=== PATIENT | male | born 1950 | race Caucasian/White ===

== ENCOUNTER 2019-03-16 11:12 | Outpatient (RCR) | payer SELFPAY | END 2019-03-24 00:01 | LOC: LAB 11:12 | PROVIDERS: Family Provider Family Medicine; Visit Provider Internal Medicine Infectious Disease | DX: G96.0 Cerebrospinal fluid leak (principal) | CPT/HCPCS: 80053 ×2; 80202 ×2; 85025 ×2 ==

== ENCOUNTER → 2021-01-18 11:24 | Outpatient (BNVA) | payer MEDICARE, SELFPAY | PROVIDERS: Family Provider Family Medicine; PCP Nurse Practitioner Family; Visit Provider Family Medicine | DX: Z20.822 Contact with and (suspected) exposure to COVID-19 (principal); J06.9 Acute upper respiratory infection, unspecified | CPT/HCPCS: 87635 ==

== ENCOUNTER 2024-12-17 21:02 | Emergency (ER) | payer OTHER, MEDICAID, SELFPAY ==
--- OUTSIDE RECORDS SUMMARY | 2024-12-11 04:30 | XMS_ITS ---
Author Organization [facility] Address [address] [place] [address] Care Team Providers [facility]ive Ranger Name Role Phone Maranda Ventura Primary Care Provider Jo Noble Unavailable [phone] Results Component Value Reference Range Flag Notes Full Confirmation - Specimen Type Urine Reviewed date:12/17/2024 12:40:27 PM Interpretation: Performing Lab: Notes/Report: 6-ÓSCAR Negative 20 ng/mL ng/mL 7-Aminoclonazepam Negative 50 ng/mL ng/mL a-Hydroxyalprazolam Negative 50 ng/mL ng/mL Alprazolam Negative 50 ng/mL ng/mL Amphetamine Negative 50 ng/mL ng/mL Benzoylecgonine Negative 50 ng/mL ng/mL Buprenorphine Negative 25 ng/mL ng/mL Carisoprodol Negative 50 ng/mL ng/mL Clonazepam Negative 50 ng/mL ng/mL Codeine Negative 50 ng/mL ng/mL Cyclobenzaprine Negative 50 ng/mL ng/mL Diazepam Negative 50 ng/mL ng/mL EDDP Negative 50 ng/mL ng/mL Fentanyl Negative 3 ng/mL ng/mL Gabapentin Negative 500 ng/mL ng/mL Hydrocodone Negative 50 ng/mL ng/mL Hydromorphone >500 50 ng/mL ng/mL H Lorazepam Negative 50 ng/mL ng/mL MDMA Negative 50 ng/mL ng/mL Meprobamate Negative 50 ng/mL ng/mL Methadone Negative 50 ng/mL ng/mL Methamphetamine Negative 200 ng/mL ng/mL Morphine Negative 50 ng/mL ng/mL Naloxone Negative 50 ng/mL ng/mL Naltrexone Negative 50 ng/mL ng/mL Norbuprenorphine Negative 25 ng/mL ng/mL Nordiazepam Negative 50 ng/mL ng/mL Norfentanyl Negative 10 ng/mL ng/mL Norpropoxyphene Negative 50 ng/mL ng/mL Oxazepam Negative 50 ng/mL ng/mL Oxycodone Negative 50 ng/mL ng/mL Oxymorphone Negative 50 ng/mL ng/mL Pregabalin Negative 200 ng/mL ng/mL Propoxyphene Negative 50 ng/mL ng/mL Tapentadol Negative 50 ng/mL ng/mL Temazepam Negative 50 ng/mL ng/mL Tramadol Negative 50 ng/mL ng/mL THC Negative 50 ng/mL ng/mL Amitriptyline Negative 50 ng/mL ng/mL Carboxyzolpidem Negative 100 ng/mL ng/mL Desmethyldoxepin Negative 50 ng/mL ng/mL Doxepin Negative 50 ng/mL ng/mL Imipramine Negative 50 ng/mL ng/mL Methylphenidate Negative 50 ng/mL ng/mL Nortriptyline Negative 50 ng/mL ng/mL o-Desmethyltramadol Negative 50 ng/mL ng/mL Ritalinic Acid Negative 50 ng/mL ng/mL Desalkylflurazepam Negative 50 ng/mL ng/mL Flunitrazepam Negative 50 ng/mL ng/mL Flurazepam Negative 50 ng/mL ng/mL Ketamine Negative 50 ng/mL ng/mL Meperidine Negative 50 ng/mL ng/mL Mitragynine Negative 50 ng/mL ng/mL Norhydrocodone Negative 50 ng/mL ng/mL Norketamine Negative 50 ng/mL ng/mL Normeperidine Negative 50 ng/mL ng/mL Noroxycodone Negative 50 ng/mL ng/mL PCP Negative 25 ng/mL ng/mL Phentermine Negative 50 ng/mL ng/mL Zaleplon Negative 20 ng/mL ng/mL Trazodone Negative 50 ng/mL ng/mL Presumptive Drug Test - Spec imen Type Urine Reviewed date:12/17/2024 12:40:27 PM Interpretation: Performing Lab: Notes/Report: Opiates Screen Positive 150 ng/mL ng/ml H Benzodiazepines Screen Negative 150 ng/mL ng/ml Amphetamines Screen Negative 600 ng/mL ng/ml Cocaine Screen Negative 150 ng/mL ng/ml Methadone Screen Negative 150 ng/mL ng/ml 6-ÓSCAR Screen Negative 60 ng/mL ng/ml Methamphetamine Screen Negative 600 ng/mL ng/ml Fentanyl Screen Negative 9 ng/mL ng/ml Tricyclic Antidepressants Screen Negative 150 ng/mL ng/m l Buprenorphine Screen Negative 75 ng/mL ng/ml Cannabis Screen Negative 150 ng/mL ng/ml REASON FOR VISIT UDS Medications Medication SIG (Take, Route, Frequency, Duration) Notes Start Date End Date Status HYDROmorphone HCl 4 MG Tablet Take 1 tablet as needed for pain Orally four times a day; Duration: 28 days 11/13/2024 Active tiZANidine HCl 4 MG Tablet 1 tablet Orally three times a day; Duration: 28 days As needed FOR MUSCLE SPASMS G894,Unavailabl e 11/12/2024 Active Encounters Encounter Location Date Provider Diagnosis [facility] [place] [address] [facility] [address] 12/11/2024 Jo Noble correction (current) use of opiate analgesic Z79.891 and correction use of drug Z79.899 Assessments Encounter Date Diagnosis (ICD Code) Assessment Notes Treatment Notes Treatment Clinical Notes Section Notes 12/11/2024 correction (current) use of opiate analgesic (ICD-10 - Z79.891) 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, [place], [address], History and Physical Notes * HPI (History of Present Illness) Category Sub-Category Detail Notes Category Not es HPI Presumptive UDS ordered to ensure the safety and efficacy of the patient's treatment plan, if the presumptive is inconsistent the test will reflex to a confirmation. This confirmation will provide precise identification and quantification of specific drugs and their metabolites, enabling accurate assessment of the patient's compliance. Detecting possible diversion is crucial for preventing misuse, adjusting the treatment regimen as needed, and ensuring optimal patient outcomes. The confirmatory test will guide appropriate clinical interventions and support the responsible management of controlled medications.See attached results with included risk stratification and medical nessessity statement. Progress Notes * Robby WILLS EDOB:[birth year] (73 yo M)Acc No.[id number]:12/11/2024 Patient: Robby Bennett Provider: Monika Noble NP :1950 A ge:73 Y S ex:Male Date:12/11/2024 Address:[address] [place] [address] [id number] Pcp:Maranda Ventura Subjective: * Chief Complaints: * U DS * HPI: H PI: Presumptive UDS ordered to ensure the safety and efficacy of the patient's treatment plan, if the presumptive is inconsistent the test will reflex to a confirmation. This confirmation will provide precise identification and quantification of specific drugs and their metabolites, enabling accurate assessment of the patient's compliance. Detecting possible diversion is crucial for preventing misuse, adjusting the treatment regimen as needed, and ensuring optimal patient outcomes. The confirmatory test will guide appropriate clinical interventions and support the responsible management of controlled medications.See attached results with included risk stratification and medical nessessity statement. * Medications: T akingtiZANidine HCl 4 MG Tablet 1 tablet Orally three times a day As needed FOR MUSCLE SPASMS, Notes to Pharmacist: G894,UnavailableHYDROmorphone HCl 4 MG Tablet Take 1 tablet as needed for pain Orally four times a day Taking tiZANidine HCl 4 MG Tablet 1 tablet Orally three times a day As needed FOR MUSCLE SPASMS, Notes to Pharmacist: G894,UnavailableTaking HYDROmorphone HCl 4 MG Tablet Take 1 tablet as needed for pain Orally four times a day Assessment: * Assessment: 1. L malcom term (current) use of opiate analgesic - Z79.891 (Primary) 2 . L malcom term use of drug - Z79.899 Plan: * Treatment: Value Reference Range 6 -ÓSCAR Negative 20 ng/mL - ng/mL * 7 -Aminoclonazepam Negative 50 ng/mL - ng/mL * a -Hydroxyalprazolam Negative 50 ng/mL - ng/mL * A lprazolam Negative 50 ng/mL - ng/mL * A mitriptyline Negative 50 ng/mL - ng/mL * A mphetamine Negative 50 ng/mL - ng/mL * B enzoylecgonine Negative 50 ng/mL - ng/mL * B uprenorphine Negative 25 ng/mL - ng/mL * C arboxyzolpidem Negative 100 ng/mL - ng/mL * C arisoprodol Negative 50 ng/mL - ng/mL * C lonazepam Negative 50 ng/mL - ng/mL * C odeine Negative 50 ng/mL - ng/mL * C yclobenzaprine Negative 50 ng/mL - ng/mL * D esalkylflurazepam Negative 50 ng/mL - ng/mL * D esmethyldoxepin Negative 50 ng/mL - ng/mL * D iazepam Negative 50 ng/mL - ng/mL * D oxepin Negative 50 ng/mL - ng/mL * E DDP Negative 50 ng/mL - ng/mL * F entanyl Negative 3 ng/mL - ng/mL * F lunitrazepam Negative 50 ng/mL - ng/mL * F lurazepam Negative 50 ng/mL - ng/mL * G abapentin Negative 500 ng/mL - ng/mL * H ydrocodone Negative 50 ng/mL - ng/mL * H ydromorphone >500 H 50 ng/mL - ng/mL * I mipramine Negative 50 ng/mL - ng/mL * K etamine Negative 50 ng/mL - ng/mL * L orazepam Negative 50 ng/mL - ng/mL * M DMA Negative 50 ng/mL - ng/mL * M eperidine Negative 50 ng/mL - ng/mL * M eprobamate Negative 50 ng/mL - ng/mL * M ethadone Negative 50 ng/mL - ng/mL * M ethamphetamine Negative 200 ng/mL - ng/mL * M ethylphenidate Negative 50 ng/mL - ng/mL * M itragynine Negative 50 ng/mL - ng/mL * M orphine Negative 50 ng/mL - ng/mL * N aloxone Negative 50 ng/mL - ng/mL * N altrexone Negative 50 ng/mL - ng/mL * N orbuprenorphine Negative 25 ng/mL - ng/mL * N ordiazepam Negative 50 ng/mL - ng/mL * N orfentanyl Negative 10 ng/mL - ng/mL * N orhydrocodone Negative 50 ng/mL - ng/mL * N orketamine Negative 50 ng/mL - ng/mL * N ormeperidine Negative 50 ng/mL - ng/mL * N oroxycodone Negative 50 ng/mL - ng/mL * N orpropoxyphene Negative 50 ng/mL - ng/mL * N ortriptyline Negative 50 ng/mL - ng/mL * o -Desmethyltramadol Negative 50 ng/mL - ng/mL * O xazepam Negative 50 ng/mL - ng/mL * O xycodone Negative 50 ng/mL - ng/mL * O xymorphone Negative 50 ng/mL - ng/mL * P CP Negative 25 ng/mL - ng/mL * P hentermine Negative 50 ng/mL - ng/mL * P regabalin Negative 200 ng/mL - ng/mL * P ropoxyphene Negative 50 ng/mL - ng/mL * R italinic Acid Negative 50 ng/mL - ng/mL * T apentadol Negative 50 ng/mL - ng/mL * T emazepam Negative 50 ng/mL - ng/mL * T HC Negative 50 ng/mL - ng/mL * T ramadol Negative 50 ng/mL - ng/mL * T razodone Negative 50 ng/mL - ng/mL * Z aleplon Negative 20 ng/mL - ng/mL * This lab was reviewed by Meg Noble on 12/17/2024 at 12:40 PM CDT ?LAB: Presumptive Drug Test - Specimen Type Urine (Collection Date & Time - 12/11/2024 10:30 AM)* Value Reference Range A mphetamines Screen Negative 600 ng/mL - ng/ml * B enzodiazepines Screen Negative 150 ng/mL - ng/ml * C ocaine Screen Negative 150 ng/mL - ng/ml * M ethamphetamine Screen Negative 600 ng/mL - ng/ml * M ethadone Screen Negative 150 ng/mL - ng/ml * O piates Screen Positive H 150 ng/mL - ng/ml * T ricyclic Antidepressants Screen Negative 150 ng/m L - ng/ml * C annabis Screen Negative 150 ng/mL - ng/ml * 6 -ÓSCAR Screen Negative 60 ng/mL - ng/ml * F entanyl Screen Negative 9 ng/mL - ng/ml * B uprenorphine Screen Negative 75 ng/mL - ng/ml * This lab was reviewed by Meg Noble on 12/17/2024 at 12:40 PM CDT * Procedure Codes: 8 0307 DRUG TEST PRSMV CHEM [id number] Drug test def 1-7 classes Billing Information: * Procedure Codes: 34014 DRUG TEST PRSMV CHEM ANLYZR. [id number] Drug test def 1-7 classes. * Sign off status: Completed true * Provider: Monika Noble NP Date: 0 12/11/2024 Generated for Jaqueline meneses/Paul/Curtis on: 0 12/17/2024 09:08 PM CDT
--- OUTSIDE RECORDS SUMMARY | 2024-12-11 05:30 | XMS_ITS ---
Author Organization [facility] Address [address] [place] [address] Care Team Providers Care Back Tender Paper Machine Name Role Phone Maranda Ventura Primary Care Provider Jo Noble Unavailable [phone] Allergies Allergen (clinical drug ingredient) Drug/Non Drug Allergy documented on EMR Reaction Allergy Type Onset Date Status morphine Morphine Unknown Drug Allergy Active oxycodone Oxycodone Unknown Drug Allergy Active REASON FOR VISIT PAIN HAWK., Patient presents this visit with complaint of neck and low back pain Medications Medication SIG (Take, Route, Frequency, Duration) Notes Start Date End Date Status HYDROmorphone HCl 4 MG Tablet Take 1 tablet as needed for pain Orally four times a day; Duration: 28 days 12/10/2024 Active tiZANidine HCl 4 MG Tablet 1 tablet Orally three times a day; Duration: 28 days As needed FOR MUSCLE SPASMS G894,Unavailabl e 12/10/2024 Active Vital Signs Blood pressure systolic 121 mm Hg 12/12/19 25 Blood pressure diastolic 93 mm Hg 025 Heart Rate 64 /min 12/11/2024 Respiratory Rate 20 /min 12/11/2024 Height 64 in 12/11/2024 Weight 160 lbs 12/11/2024 BMI 27.46 kg/m2 12/11/2024 Oximetry 99 % 12/11/2024 Height-cm 162.56 cm 12/11/2024 Weight-kg 72.58 kg 12/11/2024 Encounters Encounter Location Date Provider Diagnosis [facility] [address] [place] [place] [address] 12/11/2024 Jo Noble Cervical spondylosis M47.812 ; Lumbar spondylosis M47.816 ; History of back surgery Z98.890 ; Bulging of cervical intervertebral disc M50.30 ; Neural foraminal stenosis of cervical spine M48.02 ; Neural foraminal stenosis of lumbar spine M48.061 ; Chronic pain syndrome G89.4 and detention (current) use of opiate analgesic Z79.891 Assessments Encounter Date Diagnosis (ICD Code) Assessment Notes Treatment Notes Treatment Clinical Notes Section Notes 12/11/2024 Cervical spondylosis (ICD-10 - M47.812) CT C-SPINE COMPLETED JULY 2024. REVIEWED PREVIOUSLY. WILL GET PATIENT SET UP WITH NEUROSURGERY REFERRAL. NOTE TO STAFF TO CHECK ON REFERRAL 12/11/2024 Lumbar spondylosis (ICD-10 - M47.816) CT L-SPINE COMPLETED JULY 2024. REVIEWED PREVIOUSLY. WILL GET PATIENT SET UP WITH NEUROSURGERY. 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 Narcotic prescription signed per doctor. Patient denies any side effects, states regimen is helping. Discussed the consumer loan underwriter risk (ie. Addiction, oversedation, respiratory depression, and even dealth by overdose) The patient has pathology and justification for chronic use of narcotics.Discussed the consumer loan underwriter risk of being on opiate therapy, patient is aware and accepts the risk. The patient is not to drive or operate heavy equipment until knows how the medication will make them feel. Also discussed with the patient the new CDC guidelines regarding benzodiazepines and opiates. The fact that the CDC does not recommend taking both of these medications on an on-going basis. If the medication is prescribed b another physician we strongly discourage this practice. Should the patient continue to take benzodiazepines and opiates together despite the warning it is at their own risk.During the patient's visit today, we discussed their chronic pain, including the onset, duration, aggravating and relieving factors, nature of the pain, and their pain scale. We attempted to identify how the pain affected the patient's daily activities, mobility, mood, sleep, and relationships. We discussed both the long and short-term goals for pain management.We discussed the current medications including the dose, effectiveness, and potential side effects. Non-opioid therapies were considered, including NSAIDs and other adjuvant medications.We discussed the importance of exercise and recommended tailored exercises for the patient. We discussed physical therapy and potential referral to a physical therapist, if appropriate.We discussed the risks/benefits of alternative treatments such as acupuncture, rn intensive care unit, massage, and biofeedback.We discussed behavioral health and coping strategies. If applicable, we performed a PHQ-9 and CARMEN-7 with the patient. If the patient scored as having anxiety or depression, they were given education on the diagnosis. We discussed the importance of addressing any mental health concerns as mental health disorders are a common comorbidity of chronic pain. We discussed techniques to reduce stress and promote relaxation. If applicable, the patient was offered a referral to behavioral health.We discussed lifestyle modifications, including getting appropriate sleep, eating a healthy diet, and striving to control their weight. We discussed avoiding activities that exacerbate their pain.We discussed that we would reassess their pain scale and adjust their care plan as needed during future visits.Discussed all the risk, side effects, and drug interactions for consumer loan underwriter use of narcotics. The patient understands and is aware regarding all the risk involved. Also discussed overdose prevention plan including Narcan The patient is engaged in a longitudinal care relationship for the ongoing management of complex chronic conditions, including Chronic Pain Syndrome and long-term opioid analgesic use, along with other chronic pain conditions outlined in the assessment. The treatment plan involves continuous monitoring that includes random urine drug screens, routine imaging, coordination of care, and a multidisciplinary approach, which has been discussed with the patient and will be followed accordingly. The patient is engaged in a longitudinal care relationship for the ongoing management of complex chronic conditions, including Chronic Pain Syndrome and long-term opioid analgesic use, along with other chronic pain conditions outlined in the assessment. The treatment plan involves continuous monitoring that includes random urine drug screens, routine imaging, coordination of care, and a multidisciplinary approach, which has been discussed with the patient and will be followed accordingly. Plan Of Treatment Medication Medication Name Sig Start Date Stop Date Notes HYDROmorphone HCl 4 MG Tablet Take 1 tablet as needed for pain Orally four times a day; Duration: 28 days 12/10/2024 tiZANidine HCl 4 MG Tablet 1 tablet Oral ly three times a day; Duration: 28 days 12/10/2024 G894,Unavailable Treatment Notes Assessment Notes Cervical spondylosis CT C-SPINE COMPLETE D JULY 2024. REVIEWED PREVIOUSLY. WILL GET PATIENT SET UP WITH NEUROSURGERY REFERRAL. NOTE TO STAFF TO CHECK ON REFERRAL Lumbar spondylosis CT L-SPINE COMPLETED JULY 2024. REVIEWED PREVIOUSLY. WILL GET PATIENT SET UP WITH NEUROSURGERY. NOTE TO STAFF TO CHECK ON REFERRAL Other Will continue all me dication as previously prescribed, as patient reports effective. Narcotic prescription signed per doctor. Patient denies any side effects, states regimen is helping. Discussed the senior care risk (ie. Addiction, oversedation, respiratory depression, and even dealth by overdose) The patient has pathology and justification for chronic use of narcotics.Discussed the consumer loan underwriter risk of being on opiate therapy, patient is aware and accepts the risk. The patient is not to drive or operate heavy equipment until knows how the medication will make them feel. Also discussed with the patient the new CDC guidelines regarding benzodiazepines and opiates. The fact that the CDC does not recommend taking both of these medications on an on-going basis. If the medication is prescribed b another physician we strongly discourage this practice. Should the patient continue to take benzodiazepines and opiates together despite the warning it is at their own risk.During the patient's visit today, we discussed their chronic pain, including the onset, duration, aggravating and relieving factors, nature of the pain, and their pain scale. We attempted to identify how the pain affected the patient's daily activities, mobility, mood, sleep, and relationships. We discussed both the long and short-term goals for pain management.We discussed the current medications including the dose, effectiveness, and potential side effects. Non-opioid therapies were considered, including NSAIDs and other adjuvant medications.We discussed the importance of exercise and recommended tailored exercises for the patient. We discussed physical therapy and potential referral to a physical therapist, if appropriate.We discussed the risks/benefits of alternative treatments such as acupuncture, rn intensive care unit, massage, and biofeedback.We discussed behavioral health and coping strategies. If applicable, we performed a PHQ-9 and CARMEN-7 with the patient. If the patient scored as having anxiety or depression, they were given education on the diagnosis. We discussed the importance of addressing any mental health concerns as mental health disorders are a common comorbidity of chronic pain. We discussed techniques to reduce stress and promote relaxation. If applicable, the patient was offered a referral to behavioral health.We discussed lifestyle modifications, including getting appropriate sleep, eating a healthy diet, and striving to control their weight. We discussed avoiding activities that exacerbate their pain.We discussed that we would reassess their pain scale and adjust their care plan as needed during future visits.Discussed all the risk, side effects, and drug interactions for senior care use of narcotics. The patient understands and is aware regarding all the risk involved. Also discussed overdose prevention plan including Narcan The patient is engaged in a longitudinal care relationship for the ongoing management of complex chronic conditions, including Chronic Pain Syndrome and long-term opioid analgesic use, along with other chronic pain conditions outlined in the assessment. The treatment plan involves continuous monitoring that includes random urine drug screens, routine imaging, coordination of care, and a multidisciplinary approach, which has been discussed with the patient and will be followed accordingly. The patient is engaged in a longitudinal care relationship for the ongoing management of complex chronic conditions, including Chronic Pain Syndrome and long-term opioid analgesic use, along with other chronic pain conditions outlined in the assessment. The treatment plan involves continuous monitoring that includes random urine drug screens, routine imaging, coordination of care, and a multidisciplinary approach, which has been discussed with the patient and will be followed accordingly. Next Appt Details Follow Up: 4 Weeks, Reason: FU Provider Name:Jo Noble, Vipul 10:00:00 AM, [address] [place] [address] [place], [place], [id number], History and Physical Notes * HPI (History of Present Illness) Category Sub-Category Detail Notes Category Not es History of Present Illness Was the patients last drug screen reveiwed by staff? LAST UDS 09/18/24; REVIEWED AND COMPARED TO MED LIST. I/C. NEG FOR PAIN MEDS. AT LAST VISIT EDUCATED PATIENT TO TAKE PAIN MEDS PRESCRIBED AND IF NEG UDS IN THE FUTURE, WILL RESULT IN DECREASE IN PAIN MEDS. UDS TODAY. PATIENT REPORTS HE HAS BEEN SICK AT HIS STOMACH FOR THE LAST 2 DAYS. THIS IS SECOND TIME PATIENT HAS REPORTED THIS. EDUCATED PATIENT TO FOLLOW-UP WITH PCP FOR FURTHER EVALUATION. History of Present Illness Where is your pain located? NECK AND LOW BACK. How would you describe your pain? Sharp constant How do you rate your pain? 9/10 How long does your pain medication keep your pain under control? 15-30 minutes What is the percentage of pain relief you experience from your current medication regimen? 45% Is your current pain medication regimen helping to improve your total quality of life? Yes Do you have any history of drug of alcohol abuse? No Do you experience any sedative effects or side effects from your pain medication? No If yes, what are your symptoms? n/a Do you currently take any anti-anxiety medication? No If yes, do you understand the risk associated with taking pain medication along wiith anti-anxiety medication? n/a Do you reveive any pain medications from any other physicians? No Do you have a current script for Narcan? Yes NUMBNESS AND TINGLING; DENIES. LOCALIZED OR RADIATING; RADIATING. IMPROVING FACTORS; PAIN MEDS. WORSENING FACTORS; DENIES. INJECTIONS: DENIES; REPORTS NO IMPROVEMENT IN PAIN WITH PREVIOUS INJECTION. PT; PATIENT REPORTS DOING HOME PT/EXERICSE AND STRETCHING TOLERATED ON THEIR OWN. LABS; CMP FROM OCT 2024, REVIEWED LIVER AND RENAL ENZYMES, UNREMARKABLE. SURGICAL HISTORY: Low back x 1 IN 2019, [facility] DR. JESSICA GILBERT. IMAGING; XRAY CSPINE AND XRAY LSPINE COMPLETED JAN 2024. REVIEWED PREVIOUSLY CT CSPINE AND CT LSPINE COMPLETED JULY 2024. REVIEWED PREVIOUSLY. WILL GET PATIENT SET UP WITH NEUROSURGERY REFERRAL. PATIENT WANTING TO GO TO [place], DR. JESSICA GILBERT. VERBAL WARNING; 10/16/24: LAST UDS 09/18/24; REVIEWED AND COMPARED TO MED LIST. I/C. NEG FOR PAIN MEDS. EDUCATED PATIENT TO TAKE PAIN MEDS PRESCRIBED AND IF NEG UDS IN THE FUTURE, WILL RESULT IN DECREASE IN PAIN MEDS. UDS NEXT VISIT. Examination Category Sub-Category Detail Notes Category Not es Cervical Spine Inspection: normal C-spine a nd cervical curvature, without swelling and erythema Palpation: MODERATE TENDERNESS. RADIATES DOWN BUE. NO PALPABLE MASSES. Range of motion: LIMITED ROM. Back Inspection: WNL Palpation: Moderate tenderness that radiates to right hip, without palpable masses sacroiliac joint tenderness Range of motion: decreased full range of motion, secondary to pain Gait: normal, without gait disturbance, or use of ambulatory aids Physical Exam SPC General: no acute distress Eyes: sclera white Lung: regular breathing ra te and effort Neurologic: alert oriented Mental Status calm, pleasant Progress Notes * Robby WILLS EDOB:[birth year] (73 yo M)Acc No.[id number]:12/11/2024 Patient: Robby Bennett Provider: Monika Noble NP :1950 A ge:73 Y S ex:Male Date:12/11/2024 Address:[address] [place] [address] Pcp:Maranda Ventura Subjective: * Chief Complaints: * P AIN HAWK.Patient presents this visit with complaint of neck and low back pain * HPI: H istory of Present Illness: Was the patients last drug screen reveiwed by staff? LAST UDS 09/18/24; REVIEWED AND COMPARED TO MED LIST. I/C. NEG FOR PAIN MEDS. AT LAST VISIT EDUCATED PATIENT TO TAKE PAIN MEDS PRESCRIBED AND IF NEG UDS IN THE FUTURE, WILL RESULT IN DECREASE IN PAIN MEDS. UDS TODAY. PATIENT REPORTS HE HAS BEEN SICK AT HIS STOMACH FOR THE LAST 2 DAYS. THIS IS SECOND TIME PATIENT HAS REPORTED THIS. EDUCATED PATIENT TO FOLLOW-UP WITH PCP FOR FURTHER EVALUATION. History of Present Illness Where is your pain located? NECK AND LOW BACK. How would you describe your pain? Sharp constant How do you rate your pain? 9/10 How long does your pain medication keep your pain under control? 15-30 minutes What is the percentage of pain relief you experience from your current medication regimen? 45% Is your current pain medication regimen helping to improve your total quality of life? Yes Do you have any history of drug of alcohol abuse? No Do you experience any sedative effects or side effects from your pain medication? No If yes, what are your symptoms? n/a Do you currently take any anti-anxiety medication? No If yes, do you understand the risk associated with taking pain medication along wiith anti-anxiety medication? n/a Do you reveive any pain medications from any other physicians? No Do you have a current script for Narcan? Yes NUMBNESS AND TINGLING; DENIES. LOCALIZED OR RADIATING; RADIATING. IMPROVING FACTORS; PAIN MEDS. WORSENING FACTORS; DENIES. INJECTIONS: DENIES; REPORTS NO IMPROVEMENT IN PAIN WITH PREVIOUS INJECTION. PT; PATIENT REPORTS DOING HOME PT/EXERICSE AND STRETCHING TOLERATED ON THEIR OWN. LABS; CMP FROM OCT 2024, REVIEWED LIVER AND RENAL ENZYMES, UNREMARKABLE. SURGICAL HISTORY: Low back x 1 IN 2019, O[facility] DR. JESSICA GILBERT. IMAGING; XRAY CSPINE AND XRAY LSPINE COMPLETED JAN 2024. REVIEWED PREVIOUSLY CT CSPINE AND CT LSPINE COMPLETED JULY 2024. REVIEWED PREVIOUSLY. WILL GET PATIENT SET UP WITH NEUROSURGERY REFERRAL. PATIENT WANTING TO GO TO [place], DR. JESSICA GILBERT. VERBAL WARNING; 10/16/24: LAST UDS 09/18/24; REVIEWED AND COMPARED TO MED LIST. I/C. NEG FOR PAIN MEDS. EDUCATED PATIENT TO TAKE PAIN MEDS PRESCRIBED AND IF NEG UDS IN THE FUTURE, WILL RESULT IN DECREASE IN PAIN MEDS. UDS NEXT VISIT. * ROS: G eneral: Patient complains of p ain. R espiratory: Chest pain d enies. C ough d enies. S hortness of breath d enies. C ardiovascular: Chest pain d enies. C yanosis d enies. H igh blood pressure d enies. M usculoskeletal: Neck pain a dmits. N eurologic: Low back pain a dmits. P ain a dmits. T ingling / numbness d enies. P sychiatric: Suicidal thoughts d enies. * Medical History: Chronic Pain Medical History Verified * Medications: T akingtiZANidine HCl 4 MG Tablet 1 tablet Orally three times a day As needed FOR MUSCLE SPASMS, Notes to Pharmacist: G894,UnavailableHYDROmorphone HCl 4 MG Tablet Take 1 tablet as needed for pain Orally four times a day Medication List reviewed and reconciled with the patientTaking tiZANidine HCl 4 MG Tablet 1 tablet Orally three times a day As needed FOR MUSCLE SPASMS, Notes to Pharmacist: G894,UnavailableTaking HYDROmorphone HCl 4 MG Tablet Take 1 tablet as needed for pain Orally four times a day Medication List reviewed and reconciled with the patient * Allergies: M orphineOxycodoneyesAllergies Verified. Objective: * Vitals: H t: 64 in, Wt:160lbs, BMI:27.46Index, BP:121/93mm Hg, HR:64/min, RR:20/min, Oxygen sat %:99%, Wt-k.58 kg, Ht-cm: 162.56 cm, Body Surface Area: 1.81. * Examination: P hysical Exam SPC: General: n o acute distress. Eyes: s clera white. Lung: r egular breathing rate and effort. Neurologic: a lert oriented. Mental Status c angela, pleasant. B ack: Inspection: W NL. Palpation: M oderate tenderness that radiates to right hip, without palpable masses sacroiliac joint tenderness. Range of motion: d ecreased full range of motion, secondary to pain. Gait: n ormal, without gait disturbance, or use of ambulatory aids . C ervical Spine: Inspection: n ormal C-spine and cervical curvature, without swelling and erythema. Palpation: M ODERATE TENDERNESS. RADIATES DOWN BUE. NO PALPABLE MASSES. Range of motion: L IMITED ROM. Assessment: * Assessment: 1. L umbar spondylosis - M47.816 (Primary) 2 . C ervical spondylosis - M47.812 3 . H istory of back surgery - Z98.890 4 . B ulging of cervical intervertebral disc - M50.30 5 . N eural foraminal stenosis of cervical spine - M48.02 6 . N eural foraminal stenosis of lumbar spine - M48.061 ? 7 . C hronic pain syndrome - G89.4 8 . L malcom term (current) use of opiate analgesic - Z79.891 Plan: * Treatment: 2. C ervical spondylosis Notes: CT C-SPINE COMPLETED JULY 2024. REVIEWED PREVIOUSLY. WILL GET PATIENT SET UP WITH NEUROSURGERY REFERRAL. NOTE TO STAFF TO CHECK ON REFERRAL 3. C hronic pain syndrome Refill HYDROmorphone HCl Tablet, 4 MG, Take 1 tablet as needed for pain, Orally, four times a day, 28 days, 112, Refills 0; R efill tiZANidine HCl Tablet, 4 MG, 1 tablet, Orally, three times a day As needed FOR MUSCLE SPASMS, 28 days, 84 Tablet, Refills 0, Notes to Pharmacist: G894,Unavailable.? 4. O mary ellen Notes: Will continue all medication as previously prescribed, as patient reports effective. Narcotic prescription signed per doctor. Patient denies any side effects, states regimen is helping. Discussed the consumer loan underwriter risk (ie. Addiction, oversedation, respiratory depression, and even dealth by overdose) The patient has pathology and justification for chronic use of narcotics.Discussed the senior care risk of being on opiate therapy, patient is aware and accepts the risk. The patient is not to drive or operate heavy equipment until knows how the medication will make them feel. Also discussed with the patient the new CDC guidelines regarding benzodiazepines and opiates. The fact that the CDC does not recommend taking both of these medications on an on-going basis. If the medication is prescribed b another physician we strongly discourage this practice. Should the patient continue to take benzodiazepines and opiates together despite the warning it is at their own risk.During the patient's visit today, we discussed their chronic pain, including the onset, duration, aggravating and relieving factors, nature of the pain, and their pain scale. We attempted to identify how the pain affected the patient's daily activities, mobility, mood, sleep, and relationships. We discussed both the long and short-term goals for pain management.We discussed the current medications including the dose, effectiveness, and potential side effects. Non-opioid therapies were considered, including NSAIDs and other adjuvant medications.We discussed the importance of exercise and recommended tailored exercises for the patient. We discussed physical therapy and potential referral to a physical therapist, if appropriate.We discussed the risks/benefits of alternative treatments such as acupuncture, rn intensive care unit, massage, and biofeedback.We discussed behavioral health and coping strategies. If applicable, we performed a PHQ-9 and CARMEN-7 with the patient. If the patient scored as having anxiety or depression, they were given education on the diagnosis. We discussed the importance of addressing any mental health concerns as mental health disorders are a common comorbidity of chronic pain. We discussed techniques to reduce stress and promote relaxation. If applicable, the patient was offered a referral to behavioral health.We discussed lifestyle modifications, including getting appropriate sleep, eating a healthy diet, and striving to control their weight. We discussed avoiding activities that exacerbate their pain.We discussed that we would reassess their pain scale and adjust their care plan as needed during future visits.Discussed all the risk, side effects, and drug interactions for consumer loan underwriter use of narcotics. The patient understands and is aware regarding all the risk involved. Also discussed overdose prevention plan including NarcanThe patient is engaged in a longitudinal care relationship for the ongoing management of complex chronic conditions, including Chronic Pain Syndrome and long-term opioid analgesic use, along with other chronic pain conditions outlined in the assessment. The treatment plan involves continuous monitoring that includes random urine drug screens, r outine imaging, coordination of care, and a multidisciplinary approach, which has been discussed with the patient and will be followed accordingly.The patient is engaged in a longitudinal care relationship for the ongoing management of complex chronic conditions, including Chronic Pain Syndrome and long-term opioid analgesic use, along with other chronic pain conditions outlined in the assessment. The treatment plan involves continuous monitoring that includes random urine drug screens, r outine imaging, coordination of care, and a multidisciplinary approach, which has been discussed with the patient and will be followed accordingly. * Procedure Codes: G 2211 Complex e/m visit add on * Follow Up: 4 Weeks (Reason: FU) Billing Information: * Visit Code: 21635 Office Visit, Est Pt., Level 4. * Procedure Codes: G2211 Complex e/m visit add on. * Sign off status: Completed true * Provider: Monika Noble NP Date: 12/11/2024 Generated for Jaqueline meneses/Paul/Brendaitting on: 12/17/2024 09:08 PM CDT
--- NOTE | 2024-12-17 21:05 | XRR_ITS ---
PROCEDURE INFORMATION: Exam: XR Chest Exam date and time: 12/17/2024 9:33 PM Age: 74 years old Clinical indication: Pain; Chest pressure; Additional info: Cp TECHNIQUE: Imaging protocol: Radiologic exam of the chest. Views: 1 view. COMPARISON: No relevant prior studies available. FINDINGS: Lungs: Calcified granulomas present throughout the lungs. No focal consolidations Pleural spaces: Unremarkable. No pleural effusion. No pneumothorax. Heart/Mediastinum: Heart normal size Bones/joints: Unremarkable. XR/XR chest 1V portable [id number] IMPRESSION: No acute cardiopulmonary process demonstrated. Numerous calcified granulomas sequela of prior granulomatous exposure.
--- NOTE | 2024-12-17 21:06 | W.ED.CHESTPA ---
HPI - Chest Pain General: Chief Complaint: Chest Pain Stated Complaint: chest pain Source: patient and EMS Mode of arrival: EMS Limitations: no limitations History of Present Illness: 74-year-old male he states that he has had chronic chest pain has been going on for years he states the last 4 to 5 days he had a dull aching pain in the center of his chest. He states that the pain is currently 4 out of 10 did receive nitro and aspirin and route with no relief. He denies any shortness of breath denies any diaphoresis denies any nausea. Related Data Home Medications ?Medication ?Instructions ?Recorded ?Confirmed acetaminophen 500 mg tablet 500 mg PO Q4H 01/18/21 01/18/21 aspirin 81 mg tablet,delayed ea PO 01/18/21 01/18/21 release docusate sodium 100 mg capsule ea PO 01/18/21 01/18/21 ergocalciferol (vitamin D2) 1,250 ea PO 01/18/21 01/18/21 mcg (50,000 unit) capsule famotidine 20 mg tablet ea PO 01/18/21 01/18/21 fluticasone propionate 50 g intranasal 01/18/21 01/18/21 mcg/actuation nasal spray,suspension gabapentin 100 mg capsule ea PO 01/18/21 01/18/21 ibuprofen 800 mg tablet ea PO 01/18/21 01/18/21 lisinopril 5 mg tablet ea PO 01/18/21 01/18/21 montelukast 10 mg tablet ea PO 01/18/21 01/18/21 olopatadine 0.2 % eye drops 1 drp ophthalmic (eye) DAILY 01/18/21 01/18/21 oxycodone myristate 9 mg capsule 9 mg PO Q12H 01/18/21 01/18/21 sprinkle extended release 12 hr(DON'T CRUSH) oxycodone-acetaminophen 10 mg-325 1 tab PO Q8H PRN pain 01/18/21 01/18/21 mg tablet polyethylene glycol 3350 17 g PO 01/18/21 01/18/21 gram/dose oral powder pramipexole 0.25 mg tablet ea PO 01/18/21 01/18/21 sertraline 100 mg tablet ea PO 01/18/21 01/18/21 simvastatin 40 mg tablet ea PO 01/18/21 01/18/21 tamsulosin 0.4 mg capsule ea PO 01/18/21 01/18/21 tizanidine 4 mg tablet ea PO 01/18/21 01/18/21 tramadol 50 mg tablet 50 mg PO BID 01/18/21 01/18/21 Previous Rx's ?Medication ?Instructions ?Recorded amoxicillin 875 mg-potassium 1 tab PO BID 7 days #14 tabs 01/18/21 clavulanate 125 mg tablet (Augmentin) prednisone 20 mg tablet 20 mg PO DAILY 5 days #5 tabs 01/18/21 Allergies Allergy/AdvReac Type Severity Reaction Status Date / Time influenza virus vaccine ts Allergy Intermediate sick Verified 01/18/21 09:28 [id number] (36 mos,up) (From [employer]) latex Allergy Intermediate sick Verified 01/18/21 09:24 Opioids-Methadone and Related Allergy Intermediate sick Verified 01/18/21 09:24 Opioids - Morphine Analogues AdvReac sick Verified 01/18/21 09:24 Review of Systems Card: Reports: chest pain [facility] ED PFSH: Social History Smoking and tobacco/nicotine status: never used tobacco/nicotine Physical Exam Const: COMMON NORMALS: no acute distress, patient oriented x3 and healthy appearing HENMT: COMMON NORMALS: normocephalic and atraumatic HEAD & SCALP: normocephalic and atraumatic Eye: COMMON NORMALS: conjunctivae normal CONJUNCTIVA: Yes conjunctivae normal Neck/C-Spine: COMMON NORMALS: full ROM and supple Chest: COMMONS NORMALS: normal inspection of the chest Resp: COMMON NORMALS: normal respiratory effort, No retractions, No use of accessory muscles and clear to auscultation bilaterally AUSCULTATION: clear to auscultation bilaterally Cardio: COMMON NORMALS: regular rate, regular rhythm and No murmurs present (Cardio) RATE: regular rate RHYTHM: regular rhythm GI: COMMON NORMALS: Normal to inspection, nondistended, normoactive bowel sounds present, Soft to palpation, non-tender and no masses PALPATION: Yes Soft to palpation Extremity: COMMON NORMALS: normal to inspection and full ROM Neuro: COMMON NORMALS: patient oriented x3, moves all extremities and no focal motor deficits Psych: COMMON NORMALS: mental status grossly normal, Normal thought process present and cooperative THOUGHT PROCESS: Normal thought process present Skin: COMMON NORMALS: no rashes or lesions noted and no wounds GENERAL SKIN EXAM: no rashes or lesions noted Course Vital Signs: Vital signs: Vital Signs Temperature 99.1 F 12/17/24 21:08 Pulse Rate 58 L 12/17/24 21:08 Respiratory Rate 16 12/17/24 21:08 Blood Pressure 131/77 12/17/24 21:08 Pulse Oximetry 96 12/17/24 21:08 Oxygen Delivery Me thod Room Air 12/17/24 21:08 MDM - Chest Pain Medical Decision Making Patient presents here chest pain is atypical in nature has been going on for months he has been well-appearing here is no signs of acute coronary syndrome no signs of pulmonary embolism no signs of aortic dissection. His abdominal exam is benign as well no signs of pancreatitis. His blood work here is normal including a normal troponin EKG chest x-ray showed no acute findings I did go over labs along with imaging with him his pain has improved he is to follow-up with his PCP and return if worsening he understands agrees to plan Medical Records I reviewed the patient's medical records. Lab Data I reviewed the patient's lab results. 12/17/24 22:17 12/17/24 21:27 Laboratory Results WBC 6.64 10^3/uL (3.29-11.43) 12/17/24 22:17 Corrected WBC Cancelled 12/17/24 21:27 RBC 4.90 10^6/uL (3.85-5.65) 12/17/24 22:17 Hgb 13.10 g/dL (11.27-16.99) 12/17/24 22:17 Hct 39.7 % (37-53) 12/17/24 22:17 MCV 81.0 fl (82-101) L 12/17/24 22:17 MCH 26.7 pg (27-33) L 12/17/24 22:17 MCHC 33.0 g/dL (30-55) 12/17/24 22:17 RDW 13.0 % (12.1-15.1) 12/17/24 22:17 Plt Count 225 10^3/cmm (157-399) 12/17/24 22:17 MPV 10.3 fL (7.4-10.4) 12/17/24 22:17 Gran % Cancelled 12/17/24 21:27 Neut % (Auto) 52.1 % 12/17/24 22:17 Lymph % (Auto) 31.3 % 12/17/24 22:17 Gilchrist % (Auto) 12.7 % 12/17/24 22:17 Eos % (Auto) 3.0 % 12/17/24 22:17 Baso % (Auto) 0.6 % 12/17/24 22:17 Neut # (Auto) 3.46 10^3/uL (1.8-7.7) 12/17/24 22:17 Lymph # (Auto) 2.1 10^3/uL (0.8-4.8) 12/17/24 22:17 Gilchrist # (Auto) 0.8 10^3/uL (0.2-0.9) 12/17/24 22:17 Eos # (Auto) 0.2 10^3/uL (0.0-0.8) 12/17/24 22:17 Baso # (Auto) 0.0 10^3/uL (0.0-0.1) 12/17/24 22:17 Absolute Gran (auto) Cancelled 12/17/24 21:27 Nucleated RBC % (auto) 0 % 12/17/24 22:17 Nucleated RBCs # 0.0 /100WBC 12/17/24 22:17 Sodium 135 mmol/L (136-145) L 12/17/24 21:27 Potassium 4.0 mmol/L (3.5-5.1) 12/17/24 21: Chloride 100 mmol/L (98-107) 12/17/24 21:27 Carbon Dioxide 22 mmol/L (22-29) 12/17/24 21:27 Anion Gap 17.0 (5-19) 12/17/24 21: BUN 14 mg/dL (8-23) 12/17/24 21: Creatinine 0.9 mg/dL (0.7-1.2) 12/17/24 21:27 GFR Calculation Not Reportable 12/17/24 21: Glucose 94 mg/dL (65-115) 12/17/24 21: Calculated Osmolality 280 mOsm/kg (285-295) L 12/17/24 21:27 Calcium 9.2 mg/dL (8.5-10.5) 12/17/24 21:27 Total Bilirubin 0.2 mg/dL (0.15-1.2) 12/17/24 21: AST 21 U/L (0-40) 12/17/24 21:27 ALT 15 U/L (0-41) 12/17/24 21: Alkaline Phosphatase 94 U/L (40-130) 12/17/24 21: Troponin T Baseline 10 ng/L (0-15) 12/17/24 21: Total Protein 7.2 g/dL (6.6-8.7) 12/17/24 21: Albumin 4.3 g/dL (3.5-5.2) 12/17/24: Globulin 2.9 g/dL (1.3-4.6) 12/17/24 21: Lipase 45 U/L (13-60) 12/17/24 21: XR interpretation done by ED provider, pending radiology final review ED provider radiology interpretation(s): cxr: no acute abnormality EKG Data EKG 1: I personally reviewed and interpreted this EKG as follows: EKG interpretation date: 12/17/24 EKG interpretation time: 21:07 Interpretation: sinus valdez hr [address] elevation qrs 97 qtc 426 Clincial Decision Support The following clinical decision support tools were used to aid in care of the patient HEART Score -> History: Slightly Suspicous, EKG: Normal, Age: 65 or more yrs, Risk Factors: 1 or 2 Risk Factors, Troponin: Baseline Trop <16 ng/L. Resulting HEART Score: 3. Discharge Plan Discharge Patient Disposition: Home Clinical Impression: Chest pain Condition: Stable Prescriptions: No Action pramipexole 0.25 mg tablet PO montelukast 10 mg tablet PO Xtampza ER 9 mg cap,sprinkl,ER12hr(DONT CRUSH) 9 mg PO Q12H oxycodone-acetaminophen 10-325 mg tablet 1 tab PO Q8H PRN (Reason: pain) sertraline 100 mg tablet PO docusate sodium 100 mg capsule PO polyethylene glycol 3350 17 gram/dose powder PO famotidine 20 mg tablet PO acetaminophen 500 mg tablet 500 mg PO Q4H aspirin 81 mg tablet,delayed release (DR/EC) PO tizanidine 4 mg tablet PO tamsulosin 0.4 mg capsule PO fluticasone propionate 50 mcg/actuation spray,suspension intranasal simvastatin 40 mg tablet PO ergocalciferol (vitamin D2) 1,250 mcg (50,000 unit) capsule PO olopatadine 0.2 % drops 1 drp ophthalmic (eye) DAILY tramadol 50 mg tablet 50 mg PO BID ibuprofen 800 mg tablet PO gabapentin 100 mg capsule PO lisinopril 5 mg tablet PO prednisone 20 mg tablet 20 mg PO DAILY 5 Days Qty: 5 0RF amoxicillin-pot clavulanate [Augmentin] 875-125 mg tablet 1 tab PO BID 7 Days Qty: 14 0RF Discharge Orders: Discharge ED (Routine); Ordered 12/17/24 Ordered By: Lex Padilla Referrals: KANWAL Gordon FNP [Primary Care Provider, Family Practice] Karri Russell DO [Family Provider, Family Practice] Discharge Diet: Advance as tolerated Discharge Activity: Resume usual activity Patient Instructions: Chest Pain (ED) Print Language: Italian Coding Level of Care Code ED Insulator Tester for Antonio Hagen
--- NOTE | 2024-12-17 21:07 | ECG_ITS ---
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
[2024-12-17 21:08] VITALS: BP 131/77; PULSE 58; RESP 16; TEMP 37.3; O2SAT 96; BMI 27.4
--- OUTSIDE RECORDS SUMMARY | 2024-12-17 21:08 | XMS_ITS | Encounter Summary ---
Author Organization [facility] Address [address] [place] [address] Care Team Providers Care Cosmetologist Apprentice Name Role Phone Marisa Driscoll MD Primary Care Provider [phone] Encounter Details Date Type Department Care Team (Late st Contact Info) Description 11/23/2019 Ancillary Orders [facility] Orthoped[facility] - Orthopedic [facility] [address] [place] [address] Steve Leger MD [address] [place] [address] Pain Social History Tobacco Use Types Packs/Day Years Used Date Smoking Tobacco: Former Cigarettes 4 9 1 971 - 1980 Smokeless Tobacco: Current Chew Comments:1 can per week for 39 years (Noted 19) Alcohol Use Standard Drinks/Week Comments No 0 (1 standard drink = 0.6 oz pur e alcohol) Sex and Gender Information Value Date Recorded Sex Assigned at Not on file Legal Sex Male 4:35 AM SENIOR INTEGRATION ARCHITECT Gender Identity Not on file Sexual Orientation Not on file Occupation Industry Job Start Date Job End Date Not on file Not on file Not on file Not on file COVID-19 Exposure Response Date Recorded In the last month, have you been in contact with someone who was confirmed or suspected to have Coronavirus / COVID-19? No / Unsure 11/23/2019 12:17 PM CDT documented as of this encounter Plan of Treatment Not on file documented as of this encounter Results * XR PELVIS 1 OR 2 VW (11/23/2019 12:29 PM CDT) Anatomical Region Laterality Modality Pelvis Computed Radiogr aphy Narrative 12/08/2019 6:33 AM CDT Standing AP pelvis and AP and lateral of the right hip shows subchondral sclerosis, periarticular osteophyte formation, joint space narrowing. There is no evidence of osteolytic or osteoblastic lesions of bone. No fractures identified. us Steve Leger MD DIAGNOSTIC IMAGING ORDERABLES Final Result documented in this encounter Visit Diagnoses Diagnosis Pain Generalized pain Pain Generalized pain documented in this encounter Additional Health Concerns Assessment Noted Time PHQ-9 Depression Total Score: 1 04/30/19 19 3:00 PM SENIOR INTEGRATION ARCHITECT documented as of this encounter Care Teams Cosmetologist Apprentice Relationship Specialty Start Date End Date Marisa Driscoll MD [address] [facility] [address] [place] [id number] PCP - General Family Practice 09/30/17 documented as of this encounter
--- OUTSIDE RECORDS SUMMARY | 2024-12-17 21:08 | XMS_ITS | Clinical Summary ---
Author Organization [facility] Address [address] [place] [address] Phone Care Team Providers Care Garage Worker Name Role Phone Marisa Driscoll MD Primary Care Provider Allergies Active Allergy Reactions Criticality Noted Date Comments Latex Swelling Low 10/23/2016 Methadone Hives High 08/29/2015 Morphine Hives High 08/29/2015 Medications guaiFENesin (MUCINEX) 600 mg Extended Release Biphasic tablet Take 1 Tablet (600 mg) by mouth 2 times daily For sinus. 60 Tablet 1 6 Active miSOPROStol (CYTOTEC) 200 mcg tablet Take 1 Tablet (200 mcg) by mouth 4 times daily. 120 Tablet 5 6 Active bi-level machineIndicatio ns:WILFRIDO (obstructive sleep apnea) Bilevel of 10 cm/ 6 cm H20, Length of Need: 99 mos; Cpap/Bipap supplies: Full face mask and headgear A7030/A7035 1/6mo, mask only A7030 1/3mo, cushions A7031 1/mo, Tubing heated A4604, 1/3mo, water chamber A7046 1/6mo, filter disposable filters A7038 2/mo, reusable filters A7039 1/6mo.. 1 Each 9 Active sennosides-docus ate sodium (SENEXON-S) 8.6-50 mg tablet Take 1-2 Tablets by mouth 3 times daily as needed. Active oxyCODONE myristate (XTAMPZA ER) 9 mg capsule,sprinkle ,ER 12hr tmprr Take 9 mg by mouth every 12 hours. Active aspirin (ECOTRIN EC) 81 mg Tablet, Delayed Release (E.C.) Take 81 mg by mouth daily. Active loratadine (Claritin) 10 mg tabletIndication s:Allergic rhinitis, unspecified seasonality, unspecified trigger Take 1 Tablet (10 mg) by mouth daily. 30 Tablet 3 0 Active ferrous sulfate 325 mg (65 mg iron) tablet TAKE 1 TABLET(325 MG) BY MOUTH DAILY 30 Tablet 0 Active promethazine (PHENERGAN) 12.5 mg Tablet Take 1 Tablet (12.5 mg) by mouth every 6 hours as needed for Nausea/Emesis (sinus drainage). 30 Tablet 1 0 Active ibuprofen (MOTRIN) 800 mg tablet TAKE 1 TABLET(800 MG) BY MOUTH THREE TIMES DAILY WITH MEALS 90 Tablet 0 Active propranoloL (INDERAL) 10 mg tabletIndication s:Nocturnal headaches,Intrac table headache, unspecified chronicity pattern, unspecified headache type TAKE 1 TABLET(10 MG) BY MOUTH THREE TIMES DAILY. 90 Tablet 0 Active pramipexole (MIRAPEX) 0.25 mg tabletIndication s:RLS (restless legs syndrome) TAKE 2 TABLETS BY MOUTH EVERY NIGHT 180 Tablet 1 1 Active montelukast (SINGULAIR) 10 mg tablet TAKE 1 TABLET BY MOUTH DAILY AT BEDTIME 90 Tablet 1 1 Active olopatadine (Pataday) 0.2 % solution Administer 1 Drop in both eyes daily. 2.5 mL 3 1 Active lisinopriL (PRINIVIL) 5 mg tablet TAKE 1 TABLET BY MOUTH DAILY 90 Tablet 1 1 Active gabapentin (NEURONTIN) 100 mg capsuleIndicatio ns:PLMD (periodic limb movement disorder) TAKE 3 CAPSULES BY MOUTH AT BEDTIME 270 Capsule 1 1 Active tiZANidine (ZANAFLEX) 4 mg Tablet TAKE 1 TABLET(4 MG) BY MOUTH EVERY 6 HOURS NEEDED FOR SPASM 120 Tablet 1 1 Active varenicline (CHANTIX) 0.5 mg (11)- 1 mg (42) tablets STARTER dose pack Take as directed on package. 53 Tablet 1 Active cholecalciferol 1,250 mcg (50,000 unit) Capsule Take 1 Capsule (50,000 Units) by mouth every 7 days. 12 Capsule 1 Active simvastatin (ZOCOR) 40 mg tablet TAKE 1 TABLET BY MOUTH DAILY 90 Tablet 1 Active varenicline (CHANTIX) 1 mg Tablet Take 1 Tablet (1 mg) by mouth 2 times daily. 60 Tablet 2 1 Active tamsulosin (FLOMAX) 0.4 mg capsule TAKE 1 CAPSULE(0.4 MG) BY MOUTH DAILY 90 Capsule 1 1 Active fluticasone propionate (FLONASE) 50 mcg/spray [place], Suspension nasal inhalerIndicatio ns:Sinusitis, unspecified chronicity, unspecified location ADMINISTER 2 SPRAYS IN EACH NOSTRIL DAILY 16 Gram 1 1 Active sertraline (ZOLOFT) 100 mg tablet TAKE 2 TABLETS(200 MG) BY MOUTH DAILY 180 Tablet 1 1 Active Active Problems Problem Noted Date Diagnosed Date Cerebrospinal fluid leak 02/28/2019 Preoperative general physical examination 2018 Lumbar radiculopathy 01/07/2019 Essential tremor 01/07/2019 Synovial cyst 01/07/2019 Anxiety 01/07/2019 Constipation 01/07/2019 Allergic rhinitis 01/07/2019 Tobacco use 01/07/2019 Anemia 01/07/2019 Essential hypertension 12/23/2017 Overview (12/23/2017): Added per previsit query Hyperlipidemia 12/23/2017 Overview (12/23/2017): Added per previsit query Major depression 12/23/2017 Overview (12/23/2017): Added per previsit query PLMD (periodic limb movement disorder) 3 Restless legs syndrome (RLS) 01/22/2013 Hypersomnia 01/22/2013 Migraine headache 12/16/2009 Memory deficit 12/16/2009 WILFRIDO treated with BiPAP 12/16/2009 Resolved Problems Problem Noted Date Diagnosed Date Resolved Date Compression fracture of L2 lumbar vertebra 05/31/2009 12/23/2017 Syncope and collapse 05/20/2009 018 Dizziness and giddiness 05/20/2009 1003/2017 Immunizations Immunization Administration Dates Next Due (ADACEL/BOOSTRIX)(10 YR UP) TDAP VACCINE, 0.5ML, IM 03/16/2020 Influenza Seasonal Unspecified Formulation IM Family History Medical History Relation Name Comments Hypertension Brother Stroke Brother TIA Healthy Daughter 1 Healthy Daughter 2 Alzheimer's Disease Father Stroke Father Cancer Mother Heart Disease Mother Kidney Disease Mother Breast Cancer Sister 1 Unknown Sister 2 Relation Name Status Comments Brother Alive Daughter 1 Alive Daughter 2 Alive Father (Age 72) Mother (Age Late 60's) Sister 1 Alive Sister 2 Alive Social History Tobacco Use Types Packs/Day Years Used Date Smoking Tobacco: Former Cigarettes 4 9 1 971 - 1979 Smokeless Tobacco: Current Chew Tobacco Cessation:Ready to Q uit: No; Counseling Given: No Comments:1 can per week for 39 years (Noted 01-07-19) Alcohol Use Standard Drinks/Week Comments No 0 (1 standard drink = 0.6 oz pur e alcohol) Social Connections Answer Date Recorded In a typical week, how many times do you talk on the phone with family, friends, or neighbors? Three times a week 03/08/2020 How often do you get togethe r with friends or relatives? Once a week 03/08/2020 How often do you attend chur or jewish services? Never 03/08/2020 Do you belong to any clubs o r organizations such as zoroastrian groups, unions, fraternal or athletic groups, or school groups? No 03/08/2020 How often do you attend meet ings of the clubs or organizations you belong to? More than 4 times per year 03/08/2020 Marital Status Not on file 03/08/2020 Financial Resource Strain Answer Date R ecorded How hard is it for you to pa y for the very basics like food, housing, medical care, and heating? Somewhat hard 03/08/2020 Food Insecurity Answer Date Recorded Within the past 12 months, y ou worried that your food would run out before you got the money to buy more. Sometimes true Within the past 12 months, t he food you bought just didn't last and you didn't have money to get more. Sometimes true Transportation Needs Answer Date Record ed In the past 12 months, has l ack of transportation kept you from medical appointments or from getting medications? No 02/22 In the past 12 months, has l ack of transportation kept you from meetings, work, or from getting things needed for daily living? No 03/08/2020 Education Answer Date Recorded What is the highest level of school you have completed or the highest degree you have received? 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 GAGGERMAN Gender Identity Not on file Sexual Orientation Not on file Occupation Industry Job Start Date Job End Date Not on file Not on file Not on file Not on file Last Filed Vital Signs Vital Sign Reading Time Taken Comments Blood Pressure 140/60 07/08/2020 12:08 PM CDT Pulse 47 07/08/2020 11:51 AM CDT Temperature 36.8 C (98.3 F) 07/08/2020 11:51 AM CDT Respiratory Rate 24 05/19/2020 2:55 PM GAGGERMAN Oxygen Saturation 98% 07/08/2020 11:51 AM CDT Inhaled Oxygen Concentration - - Weight 72.1 kg (159 lb) 07/08/2020 11:51 AM CDT Height 162.6 cm (5' 4 ) 07/08/2020 11:51 AM CDT Body Mass Index 27.29 07/08/2020 11:51 AM CDT Plan of Treatment Health Maintenance Due Date Last Done Comments FIT/ DNA Q 3 YEARS (AUTO ORDER) 12/17/1969 FIT/FOBT Q 1 YEAR (AUTO ORDER) 12/17/1969 FLEX SIG/CT COLONOGRAPHY Q 5 YEARS (AUTO ORDER) 12/17/1969 FIT-DNA Q 3 years 12/17/1996 FIT/FOBT Q 1 year 12/17/1996 Flex Sig/CT Colonography Q 5 years 12/17/1996 ZOSTER VACCINE (1 of 2) 12/17/2001 PNEUMOCOCCAL VACCINE 50+ YEA RS (2 of 2 - PPSV23, PCV20, or PCV21) 08/11/2018 06/16/2018 Medicare [place] ([place]) Preventative Visit/Annual Wellness Visit 03/25/2024 03/08/2020 INFLUENZA VACCINE (#1) 2024 0, 02/24/2020, 01/07/2018, Additional history exists COLORECTAL CANCER SCREENING (AUTO ORDER) 04/26/2025 04/26/2015 COLORECTAL SCREENING 04/26/2025 04/26/2015, 04/26/19 Colorectal Cancer Screening (AUTO ORDER) 04/26/2025 Colorectal Cancer Screening 04/26/2025 RSV VACCINE (60+ or ) (1 - 1-dose 75+ series) 12/17/2026 DTAP/TDAP/TD VACCINES (3 - T d or Tdap) 03/16/2030 03/16/2020, 06/16/2018 Medical Devices Implanted Type Area Docent Coordinator Device Identifier Shelf Expiration Date Model / Serial / Lot Sealant Duraseal 5ml - [id number] Implanted:02/27 by Bradley Dodge MD at [facility] (Quantity not on file) Biological N/A: Spine Lumbar [employer] JETT 02/22/2020 / / [id number] Lens Io Bi-Aspheric Softechd+18.0 - [id number] Implanted:Qty: 1 on 12/12/2011 by Ernesto Noonan MD at [facility] Eye Left: Eye 07/11/2014 SOFTECHD+ 18.0 / [id number] / Hemostatic Surgiflo 8ml W/Thrombin 2994 - [id number] Implanted:Qty: 1 on 01/30/2019 by Bradley Dodge MD at [facility] Hemostatic N/A: Spine Lumbar [employer]J- [employer] 12/23/2019 2994 / / [id number] Hemostatic Surgiflo 8ml W/Thrombin 299 - [id number] Implanted:02/27 by Bradley Dodge MD at [facility] (Quantity not on file) Hemostatic N/A: Spine Lumbar J&J- [employer] 01/22/2020 2994 / / [id number] Hemostatic Surgifoam Sz12-7 1971 - [id number] Implanted:02/27 by Bradley Dodge MD at [facility] (Quantity not on file) Hemostatic N/A: Spine Lumbar J&J- [employer] END[employer] 10/23/2022 1972 / [id number] Procedures Procedure Name Priority Date/Time Associated Diagnosis Comments ENDOSCOPY, COLON, SCREENING Routine 04/26/2015 from Last 3 Months or Most Recently Relevant to Health Maintenance Results * ENDOSCOPY, COLON, SCREENING (04/26/2015) us Abstract Spg Provider GI PROCEDURE ORDERABLES Fi nal Result from Last 3 Months or Most Recently Relevant to Health Maintenance Insurance [place]ICAID [place] Member Subscriber Plan / Payer (Ef fective 2009-Present) Name:Robby Wills Relation to Subscriber:Self Name:Robby Wills Payer ID:[id number] Group ID:Not on file Type:Medicaid Address: [address] DUAL COMPLETE MCR PPO D-SNP Advance Directives For more information, please contact: [phone] * Full Code (Latest Code Status on File) Date Activated Date Inactivated Comments 02/27/2019 9:33 AM 03/07/2019 8:48 PM * Full Code Date Activated Date Inactivated Comments 01/30/2019 5:38 AM 01/31/2019 1:18 PM * Full Code Date Activated Date Inactivated Comments 02/24/2014 1:14 PM 02/24/2014 7:40 PM * Full Code Date Activated Date Inactivated Comments 02/24/2014 12:10 PM 02/24/2014 1:14 PM Care Teams Garage Worker Relationship Specialty Start Date End Date Marisa Driscoll MD [address] [address] PCP - General Family Practice 09/30/17
--- OUTSIDE RECORDS SUMMARY | 2024-12-17 21:08 | XMS_ITS | Encounter Summary ---
Author Organization [facility] Address [address] [place] [address] Care Team Providers Care Survey Engineer Name Role Phone Marisa Driscoll MD Primary Care Provider [phone] Reason for Referral * Radiology Services (Routine) - Closed Specialty Diagnoses / Procedures Referred By Shan talbert Referred To Contact Diagnoses Lumbar radiculitis Procedures XR FLUORO NEEDLE GUIDANCE SPINE Wendi Ruelas DO [address] [place] [phone] Phone: tel: fax: Referral ID Status Reason Start Date Expiration Date Visits Re quested Visits Authorized [id number] Closed 10/14/2018 11/14/2019 1 1 Encounter Details Date Type Department Care Team (Late st Contact Info) Description 10/14/2018 Ancillary Orders [facility] Pain Management Procedures [place] [address] [place] [address] Wendi Ruelas DO [address] [place] [address] Lumbar radiculitis Social History Tobacco Use Types Packs/Day Years Used Date Smoking Tobacco: Former Cigarettes 3 20 Smokeless Tobacco: Current Chew Comments:1 can per week Alcohol Use Standard Drinks/Week Comments No 0 (1 standard drink = 0.6 oz pur e alcohol) Sex and Gender Information Value Date Recorded Sex Assigned at Not on file Legal Sex Male 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 Exam was auto-finalized. 

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
--- OUTSIDE RECORDS SUMMARY | 2024-12-17 21:08 | XMS_ITS | Encounter Summary ---
Author Organization [facility] Address [address] [place] [address] Care Team Providers Care Health Analytics Consultant Name Role Phone Marisa Driscoll MD Primary Care Provider [phone]- [phone] Reason for Referral * Outpatient Services (Routine) - Closed Specialty Diagnoses / Procedures Referred By Shan talbert Referred To Contact Diagnoses Cervical spondylosis without myelopathy Procedures XR FLUORO NEEDLE GUIDANCE SPINE Erik Bello MD Referral ID Status Reason Start Date Expiration Date Visits Re quested Visits Authorized [id number] Closed 10/23/2016 11/23/2017 1 1 Encounter Details Date Type Department Care Team (Late st Contact Info) Description 10/23/2016 Ancillary Orders [facility] Pain Management Procedures [facility] [address] [place] [address] Erik Bello MD NO ADDRESS ON FILE Cervical spondylosis without myelopathy Social History Tobacco Use Types Packs/Day Years Used Date Smoking Tobacco: Former Cigarettes 3 20 Smokeless Tobacco: Current Chew Comments:1 can per week Alcohol Use Standard Drinks/Week Comments No 0 (1 standard drink = 0.6 oz pur e alcohol) Sex and Gender Information Value Date Recorded Sex Assigned at Not on file 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 Exam was auto-finalized. us Erik Bello MD DIAGNOSTIC IMAGING ORDERAB LES Final Result documented in this encounter Visit Diagnoses Diagnosis Cervical spondylosis without myelopathy Cervical spondylosis without myelopathy documented in this encounter Care Teams Health Analytics Consultant Relationship Specialty Start Date End Date Marisa Driscoll MD [address] [phone] PCP - General Family Practice 09/30/17 documented as of this encounter
--- OUTSIDE RECORDS SUMMARY | 2024-12-17 21:08 | XMS_ITS | Encounter Summary ---
Author Organization [facility] Address [address] [place] [address] Care Team Providers Care Incident Response Manager Name Role Phone Marisa Driscoll MD Primary Care Provider [phone]- [phone] Encounter Details Date Type Department Care Team (Late st Contact Info) Description 01/25/2009 Ancillary Orders [facility] Imaging Services [address] [place] [address] Steve Jennings, [employer] [address] [place] [address] Fracture Social History Tobacco Use Types Packs/Day Years Used Date Smoking Tobacco: Never Assessed Smokeless Tobacco: Current Chew Comments:1 can per week Alcohol Use Standard Drinks/Week Comments No 0 (1 standard drink = 0.6 oz pur e alcohol) Sex and Gender Information Value Date Recorded Sex Assigned at Not on file 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 Mild levoscoliosis of the lumbar spine apex at L3 with mild age-indeterminate superior endplate compression deformities of L4 and L5. jlf [id number] - uploaded from [employer] - Narrative 01/25/2009 11:15 AM INSTRUCTOR OF SPANISH AP and lateral upright views of the lumbar spine demonstrate five btu-rlk-qclvzax lumbar type vertebral bodies with mild levoscoliosis apex at L3. Mild age undetermined superior endplate compression deformities of L4 and L5 are noted. Vertebral body heights, intervertebral disc spacing, and alignment is otherwise preserved. Procedure Note Queta Mendoza MD - 01/25/2009 AP and lateral upright views of the lumbar spine demonstrate dewhsev-mdt-wglqlsi lumbar type vertebral bodies with mild levoscoliosis apex at L3. Mild age undetermined superiorendplate compression deformities of L4 and L5 are noted. Vertebral body heights, intervertebraldisc spacing, and alignment is otherwise preserved. IMPRESSION Impression: 1. Mild levoscoliosis of the lumbar spine apex at L3 with mildage-indeterminate superior endplate compression deformities of L4 and L5. [facility] 904 - uploaded from [employer] - Steve Jennings [facility] DIAGNOSTIC IMAGING ORDER [place] Final Result documented in this encounter Visit Diagnoses Diagnosis Fracture Closed fracture of unspecified bone Fracture Closed fracture of unspecified bone documented in this encounter Care Teams Incident Response Manager Relationship Specialty Start Date End Date Marisa Driscoll MD [address] [phone] PCP - General Family Practice 09/30/17 documented as of this encounter
--- OUTSIDE RECORDS SUMMARY | 2024-12-17 21:08 | XMS_ITS | Encounter Summary ---
Author Organization [facility] Address [address] [place] [address] Care Team Providers Care Help Desk Engineer Name Role Phone Marisa Driscoll MD Primary Care Provider [phone]- [phone] Encounter Details Date Type Department Care Team (Late st Contact Info) Description 01/25/2009 Ancillary Orders [facility] Neurosurgery- [place] [address] [place] [address] Steve Jennings, FRANKFURTER INSPECTOR [address] [place] [address] Social History Tobacco Use Types Packs/Day Years Used Date Smoking Tobacco: Never Assessed Smokeless Tobacco: Current Chew Comments:1 can per week Alcohol Use Standard Drinks/Week Comments No 0 (1 standard drink = 0.6 oz pur e alcohol) Sex and Gender Information Value Date Recorded Sex Assigned at Not on file 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
--- OUTSIDE RECORDS SUMMARY | 2024-12-17 21:08 | XMS_ITS | Encounter Summary ---
Author Organization [facility] Address [address] [place] [address] Care Team Providers Care Chick Grader Name Role Phone Marisa Driscoll MD Primary Care Provider [phone]- [phone] Reason for Referral * Outpatient Services (Routine) - Closed Specialty Diagnoses / Procedures Referred By Contac t Referred To Contact Diagnoses Low back pain Compression fracture of L2 lumbar vertebra (CMS/HCC) Procedures NM BONE SCAN WB + SPECT Tra Lowe MD NO ADDRESS ON FILE Referral ID Status Reason Start Date Expiration Date Visits Re quested Visits Authorized [id number] Closed 09/28/2009 03/27/2010 1 1 Encounter Details Date Type Department Care Team (Latest Contact Info) Description 09/28/2009 Ancillary Orders 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 Marked apophyseal joint inflammatory changes are observed in the lumbar spine as above. 2. No evidence of active osseous remodeling of the prior L2 compression fracture. 3. Peripheral joint arthritic changes as above. 4. No evidence for metastatic neoplastic osseous involvement. Narrative 09/28/2009 3:43 PM CDT Radionuclide Bone Imaging, Whole Body Examination / SPECT Examination of the lumbosacral spine: Radiopharmaceutical: Tc-99m HDP ([id number]) Dose: 20.8 mCi Reason for Consultation: Chronic low back pain, history of L2 vertebral compression fracture: For evaluation of facet inflammation Whole body imaging was obtained in anterior and posterior projections at approximately two hours following tracer administration. No prior examination is available for comparison. Examination of the spine demonstrates increased osseous turnover in the upper lumbar spine. Tomographic slices demonstrate very intense increase of osseous turnover at the right L2-L3 and L4-L5 apophyseal joints and in the left L1-L2 apophyseal joint. There is no increase of osseous turnover in the L2 vertebral body. The remainder of the examination demonstrates moderate arthritic changes in both wrists, the right sternoclavicular joint, both shoulders and the left knee. There are no long bone or flat bone abnormalities. Soft tissue and renal activity is physiologic. Procedure Note Robby Woosd MD - 09/28/2009 Radionuclide Bone Imaging, Whole Body Examination / SPECT Examination of the lumbosacral spine: Radiopharmaceutical: Tc-99m HDP ([id number]) Dose: 20.8 mCi Reason for Consultation: Chronic low back pain, history of L2 vertebral compression fracture: For evaluation of facet inflammation Whole body imaging was obtained in anterior and posterior projections at approximately two hours following tracer administration. No prior examination is available for comparison. Examination of the spine demonstrates increased osseous turnover in the upper lumbar spine. Tomographic slices demonstrate very intense increase of osseous turnover at the right L2-L3 and L4-L5 apophyseal joints and in the left L1-L2 apophyseal joint. There is no increase of osseous turnover in the L2 vertebral body. The remainder of the examination demonstrates moderate arthritic changes in both wrists, the right sternoclavicular joint, both shoulders and the left knee. There are no long bone or flat bone abnormalities. Soft tissue and renal activity is physiologic. IMPRESSION Impression: 1. Marked apophyseal joint inflammatory changes are observed in the lumbar spine as above. 2. No evidence of active osseous remodeling of the prior L2 compression fracture. 3. Peripheral joint arthritic changes as above. 4. No evidence for metastatic neoplastic osseous involvement. us Tra Lowe MD [place] ORDERABLES Final Result documented in this encounter Visit Diagnoses Diagnosis Low back pain Lumbago Compression fracture of L2 lumbar vertebra (CMS/HCC) Closed fracture of lumbar vertebra without mention of spinal cord injury Low back pain Lumbago Compression fracture of L2 lumbar vertebra (CMS/HCC) Closed fracture of lumbar vertebra without mention of spinal cord injury documented in this encounter Care Teams Chick Grader Relationship Specialty Start Date End Date Marisa Driscoll MD [address] [phone] PCP - General Family Practice 09/30/17 documented as of this encounter
--- OUTSIDE RECORDS SUMMARY | 2024-12-17 21:08 | XMS_ITS | Encounter Summary ---
Author Organization [facility] Address [address] [place] [address] Care Team Providers Care Exhaust And Muffler Repairer Name Role Phone Marisa Driscoll MD Primary Care Provider [phone]- [phone] Encounter Details Date Type Department Care Team (Late st Contact Info) Description 09/23/2017 Ancillary Orders [facility] Medicine [address] [address] Brett Villanueva PA NO ADDRESS ON FILE Right knee pain, unspecified chronicity Social History Tobacco Use Types Packs/Day Years Used Date Smoking Tobacco: Former Cigarettes 3 20 Smokeless Tobacco: Current Chew Comments:1 can per week Alcohol Use Standard Drinks/Week Comments No 0 (1 standard drink = 0.6 oz pur e alcohol) Sex and Gender Information Value Date Recorded Sex Assigned at Not on file 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 Exam: XR KNEE 4+ VW RIGHT Date/Time of Exam: 09/23/2017 11:22 AM Reason For Exam: Right knee pain, unspecified chronicity. Findings: There is no joint effusion. The joint spaces are maintained. There is no foreign body or intra-articular body. No chondrocalcinosis. No acute fracture. IMPRESSION: No acute bony abnormality is identified. Narrative Procedure Note Raven Alvarado MD - 09/23/2017 IMPRESSION: Please see below. Exam: XR KNEE 4+ VW RIGHT Date/Time of Exam: 09/23/2017 11:22 AM Reason For Exam: Right knee pain, unspecified chronicity. Findings: There is no joint effusion. The joint spaces are maintained. There is no foreign body or intra-articular body. No chondrocalcinosis. No acute fracture. IMPRESSION: No acute bony abnormality is identified. Brett HENRIQUEZ DIAGNOSTIC IMAGING ORDERABLES Final Result documented in this encounter Visit Diagnoses Diagnosis Right knee pain, unspecified chronicity Right knee pain, unspecified chronicity documented in this encounter Additional Health Concerns Assessment Noted Time PHQ-9 Depression Total Score: 1 09/07/19 18 3:00 PM CDT documented as of this encounter Care Teams Exhaust And Muffler Repairer Relationship Specialty Start Date End Date Marisa Driscoll MD [address] [address] PCP - General Family Practice 09/30/17 documented as of this encounter
--- OUTSIDE RECORDS SUMMARY | 2024-12-17 21:08 | XMS_ITS | Patient Health Record ---
Author Organization [facility] Address [address] [place] [address] Care Team Providers Care Affiliate Manager Name Role Phone Maranda Ventura Primary Care Provider Ailin, MR. Vergara Unavailable [phone] Jo Noble Unavailable [phone] Lay Woody Unavailable [phone] DR. Oliver Gustafson SR. Unavailable [phone] Sanaz Galeas Unavailable [phone] Allergies Allergen (clinical drug ingredient) Drug/Non Drug Allergy documented on EMR Reaction Allergy Type Onset Date Status morphine Morphine Unknown Drug Allergy Active oxycodone Oxycodone Unknown Drug Allergy Active Results Component Value Reference Range Flag Notes Presumptive Drug Test - Spec imen Type [...] ng/ml Cannabis Screen Negative 150 ng/mL ng/ml Full Confirmation - Specimen Type Urine Reviewed [...] ng/mL ng/mL Trazodone Negative 50 ng/mL ng/mL *CT LUMBAR SPINE W/O CONTRAS T 31055 Reviewed date:10/16/2024 10:59:50 AM Interpretation:Abnormal Performing Lab: Notes/Report: Abnormal Full Confirmation - Specimen Type Urine Reviewed date:05/14/2024 11:10:28 AM Interpretation: Performing Lab: Notes/Report: 6-ÓSCAR Negative 20 [...] Test - Spec imen Type Urine Reviewed date:09/28/2024 08:37:54 AM Interpretation: Performing Lab: Notes/Report: Opiates Screen Positive [...] ng/ml Cannabis Screen Negative 150 ng/mL ng/ml Full Confirmation - Specimen Type Urine Reviewed date:09/28/2024 08:37:54 AM Interpretation: Performing Lab: Notes/Report: 6-ÓSCAR Negative 20 [...] ng/mL Hydrocodone Negative 50 ng/mL ng/mL Hydromorphone Negative 50 ng/mL ng/mL Lorazepam Negative 50 ng/mL ng/mL MDMA Negative [...] ng/mL ng/mL Trazodone Negative 50 ng/mL ng/mL *CT CERVICAL SPINE W/O CONTR AST [id number] Reviewed date:10/16/2024 10:59:59 AM Interpretation:Abnormal Performing Lab: Notes/Report: Abnormal Presumptive Drug Test - Spec imen Type Urine Reviewed date:05/14/2024 11:10:15 AM Interpretation: Performing Lab: Notes/Report: Opiates Screen Positive [...] ng/ml Cannabis Screen Negative 150 ng/mL ng/ml Presumptive Drug Test - Spec imen Type Urine Reviewed date:07/16/2024 09:39:35 AM Interpretation: Performing Lab: Notes/Report: Opiates Screen Positive [...] ng/ml Cannabis Screen Negative 150 ng/mL ng/ml Full Confirmation - Specimen Type Urine Reviewed date:07/16/2024 09:39:35 AM Interpretation: Performing Lab: Notes/Report: 6-ÓSCAR Negative 20 [...] ng/mL ng/mL Trazodone Negative 50 ng/mL ng/mL Reason For Referral Reason LOW BACK PAIN AGE INDETERMINATE, POSSIBLE ACUTE SCHMORL NODE WITH ARTICULAR SURFACE COLLAPSE. Diagnosis 1 Lumbar spondylosis ( M47.816) Referral Organization [facility] Referring Provider First Name Jo Referring Provider Last Name Aide Referred Provider Specialty Neurosurgery General Notes sent to Sarai baker Jenny 08/27/2024 03:40:30 PM CDT >, [facility] [place] 09/18/2024 02:55:16 PM CDT >, PLEASE FOLLOW-UP WANTING IN [facility] DR. JESSICA GILBERT., Jo Noble 12/11/2024 10:24:10 AM CDT > Referral Priority Routine Medications Medication SIG (Take, Route, Frequency, Duration) Notes Start Date End Date Status tiZANidine HCl 4 MG Tablet 1 tablet Orally three times a day; Duration: 28 days As needed FOR MUSCLE SPASMS G894,Unavailabl e 12/10/2024 Active HYDROmorphone HCl 4 MG Tablet Take 1 tablet as needed for pain Orally four times a day; Duration: 28 days 12/11/2024 Active Problems Problem Type SNOMED Code ICD Code Onset Dates Problem Status W/U Status Risk Notes Problem Chronic pain (46663438) Other chronic pain (G89.29) Active confirmed Problem Chronic pain syndrome (022501892) Chronic pain syndrome (G89.4) Active confirmed Problem Cervicalgia (62057760) Cervicalgia (M54.2) Active confirmed Problem Sciatica (33316212) Lumbago with sciatica, right side (M54.41) Active confirmed Problem Sciatica (38398958) Lumbago with sciatica, left side (M54.42) Active confirmed Problem High risk drug monitoring status (335444293) MCC (current) use of opiate analgesic (Z79.891) Active confirmed Problem Low back pain (finding) (283607160) Other low back pain (M54.59) Active confirmed Problem Cervical spondylosis (643282249) Cervical spondylosis (M47.812) Active confirmed Problem Degeneration of cervical intervertebral disc (18690862) Bulging of cervical intervertebral disc (M50.30) Active confirmed Problem Postprocedural states (673824920) History of back surgery (Z98.890) Active confirmed Problem Spinal stenosis in cervical region (95140306) Neural foraminal stenosis of cervical spine (M48.02) Active confirmed Problem Lumbar spondylosis (944764618) Lumbar spondylosis (M47.816) Active confirmed Problem 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 stenosis of lumbar spine (M48.061) Active confirmed Vital Signs Heart Rate 64 /min 12/11/2024 Respiratory Rate 20 /min 12/11/2024 Blood pressure diastolic 93 mm Hg 12/11/2024 Oximetry 99 % 12/11/2024 Height-cm 162.56 cm 12/11/2024 Weight-kg 72.58 kg 12/11/2024 Height 64 in 12/11/2024 Blood pressure systolic 121 mm Hg 12/11/2024 Weight 160 lbs 12/11/2024 BMI 27.46 kg/m2 12/11/2024 Encounters Encounter Location Date Provider Diagnosis [facility] [place] [address] [place] [address] 08/21/2024 Oliver Turnerlanie Cervical spondylosis M47.812 and Lumbar spondylosis M47.816 [facility] [address] [place] [address] 12/30/2023 Lay Bong Chronic pain syndrom e G89.4 ; 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 ; Lumbago with sciatica, right side M54.41 ; Lumbago with sciatica, left side M54.42 ; History of back surgery Z98.890 ; Other low back pain M54.59 and Cervicalgia M54.2 [facility] [address] [place] [address] 02/07/2024 Oliver Gustafson Chronic pain syndrom e G89.4 ; Other chronic pain G89.29 ; Lumbago with sciatica, right side M54.41 ; Lumbago with sciatica, left side M54.42 ; 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 ; History of back surgery Z98.890 ; Other low back pain M54.59 and Cervicalgia M54.2 [facility] [place] [address] 02/07/2024 Lay Woody Chronic pain syndrom e G89.4 ; Lumbar trigger point syndrome M54.59 and Acute neck pain M54.2 [facility] [address] [place] [address] 03/06/2024 Jo Noble Chronic pain syndrom e G89.4 ; 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 ; History of back surgery Z98.890 ; Cervical spondylosis M47.812 and Lumbar spondylosis M47.816 [facility] [place] [address] 04/03/2024 Lay Woody History of back surgery Z98.890 ; Cervical spondylosis M47.812 ; Chronic pain syndrome G89.4 ; Lumbar spondylosis M47.816 and 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 [facility] [address] [place] [address] 05/01/2024 Lay Woody Cervical spondylosis M47.812 ; Lumbar spondylosis M47.816 ; History of back surgery Z98.890 ; Chronic pain syndrome G89.4 and MCC (current) use of opiate analgesic Z79.891 [facility] [place] [address] [facility] [place] [address] 05/01/2024 Lay Woody 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 and sawmilling operator use of drug Z79.899 [facility] [address] [place] [address] 05/29/2024 Sanaz Galeas Chronic pain syndrom e G89.4 ; Cervical spondylosis M47.812 and Lumbar spondylosis M47.816 [facility] [address] [place] [address] 06/26/2024 Sanaz Galeas Chronic pain syndrom e G89.4 ; Cervical spondylosis M47.812 and Lumbar spondylosis M47.816 [facility] [place] [address] [place] [address] 06/26/2024 Sanaz Galeas 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 and 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 operator use of drug Z79.899 [facility] [address] [place] [address] 07/24/2024 Lay Woody Cervical spondylosis M47.812 ; Lumbar spondylosis M47.816 ; History of back surgery Z98.890 ; Chronic pain syndrome G89.4 and MCC (current) use of opiate analgesic Z79.891 [facility] [address] [place] [address] 08/21/2024 Lay Woody Cervical spondylosis M47.812 ; Lumbar spondylosis M47.816 ; History of back surgery Z98.890 ; Chronic pain syndrome G89.4 and 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 and sawmilling operator use of drug Z79.899 [facility] [address] [place] [address] 10/16/2024 Jo Noble Cervical spondylosis M47.812 ; Lumbar spondylosis M47.816 ; History of back surgery Z98.890 ; Bulging of cervical intervertebral disc M50.30 ; Neural foraminal stenosis of cervical spine M48.02 ; Neural foraminal stenosis of lumbar spine M48.061 ; Chronic pain syndrome G89.4 and MCC (current) use of opiate analgesic Z79.891 [facility] [address] [place] [address] 11/13/2024 Jo Noble Cervical spondylosis M47.812 ; Lumbar spondylosis M47.816 ; History of back surgery Z98.890 ; Bulging of cervical intervertebral disc M50.30 ; Neural foraminal stenosis of cervical spine M48.02 ; Neural foraminal stenosis of lumbar spine M48.061 ; Chronic pain syndrome G89.4 and MCC (current) use of opiate analgesic Z79.891 [facility] [address] [place] [address] 12/11/2024 Jo Noble Cervical spondylosis M47.812 ; Lumbar spondylosis M47.816 ; History of back surgery Z98.890 ; Bulging of cervical intervertebral disc M50.30 ; Neural foraminal stenosis of cervical spine M48.02 ; Neural foraminal stenosis of lumbar spine M48.061 ; Chronic pain syndrome G89.4 and 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 [facility] [place] [address] [address] 12/11/2024 Jo Noble MCC (current) use of opiate analgesic Z79.891 and MCC use of drug Z79.899 [facility] [address] [place], [place] [address] 12/30/2023 Oliver Essmyer Chronic pain syndrom e G89.4 [facility] [address] [place], [place] [address] 03/06/2024 Oliver Essmyer Chronic pain syndrom e G89.4 [facility] [address] [place], [place] [address] 03/06/2024 Oliver Essmyer Chronic pain syndrom e G89.4 [facility] [address] [place] [address] 04/03/2024 Oliver Essmyer Chronic pain syndrom e G89.4 [facility] [address] [place], [place] [address] 05/01/2024 Oliver Essmyer Chronic pain syndrom e G89.4 [facility] [address] [place] [address] 05/29/2024 Oliver Essmyer Chronic pain syndrom e G89.4 [facility] [address] [place] [address] 06/26/2024 Oliver Essmyer Chronic pain syndrom e G89.4 [facility] [address] [place] [address] 07/24/2024 Oliver Essmyer Chronic pain syndrom e G89.4 [facility] [address] [place] [address] 08/21/2024 Oliver Essmyer Chronic pain syndrom e G89.4 [facility] [address] [place] [address] 09/18/2024 Oliver Essmyer Chronic pain syndrom e G89.4 [facility] [address] [place] [address] 10/16/2024 Jai Parisi Chronic pain syndrom e G89.4 [facility] [address] [place] [address] 11/13/2024 Jai Parisi Chronic pain syndrom e G89.4 [facility] [address] [place] [address] 12/11/2024 Jai Parisi Chronic pain syndrom e G89.4 Assessments Encounter Date Diagnosis (ICD Code) Assessment Notes Treatment Notes Treatment Clinical Notes Section Notes 12/30/2023 Chronic pain syndrome (ICD-10 - G89.4) 12/30/2023 MCC (current) use of opiate analgesic (ICD-10 - Z79.891) 12/30/2023 Chronic pain syndrome (ICD-10 - G89.4) 02/07/2024 Chronic pain syndrome (ICD-10 - G89.4) 02/07/2024 Lumbar trigger point syndrome (ICD-10 - M54.59) 02/07/2024 Chronic pain syndrome (ICD-10 - G89.4) 03/06/2024 Chronic pain syndrome (ICD-10 - G89.4) 03/06/2024 Chronic pain syndrome (ICD-10 - G89.4) 03/06/2024 Chronic pain syndrome (ICD-10 - G89.4) 03/06/2024 MCC (current) use of opiate analgesic (ICD-10 - Z79.891) 04/03/2024 Chronic pain syndrome (ICD-10 - G89.4) 04/03/2024 Cervical spondylosis (ICD-10 - M47.812) XRAY COMPLETED JAN 2024. REVIEWED. WILL GET CT CSPINE FOR FURTHER EVALUATION. 04/03/2024 History of back surgery (ICD-10 - Z98.890) 05/01/2024 Cervical spondylosis (ICD-10 - M47.812) CT C-SPINE ORDERED 05/01/2024 Lumbar spondylosis (ICD-10 - M47.816) CT L-SPINE ORDERED. 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 NOTE TO STAFF TO SCHEDULE APPOINTMENT WHILE PATIENT IS HERE. 07/24/2024 Chronic pain syndrome (ICD-10 - G89.4) 08/21/2024 Lumbar spondylosis (ICD-10 - M47.816) CT L-SPINE SCHEDULED FOR AFTER TODAY'S APPOINTMENT. 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 NOTE TO STAFF TO SCHEDULE WHILE PATIENT IS HERE. 08/21/2024 Cervical spondylosis (ICD-10 - M47.812) CT C-SPINE SCHEDULED FOR AFTER TODAY'S APPOINTMENT. 09/18/2024 Cervical spondylosis (ICD-10 - M47.812) CT C-SPINE COMPLETED JULY 2024. REVIEWED TODAY. WILL GET PATIENT SET UP WITH NEUROSURGERY REFERRAL. 09/18/2024 Lumbar spondylosis (ICD-10 - M47.816) CT L-SPINE COMPLETED JULY 2024. REVIEWED TODAY. WILL GET PATIENT SET UP WITH NEUROSURGERY. 09/18/2024 Chronic pain syndrome (ICD-10 - G89.4) 10/16/2024 Cervical spondylosis (ICD-10 - M47.812) CT C-SPINE COMPLETED JULY 2024. REVIEWED TODAY. WILL GET PATIENT SET UP WITH NEUROSURGERY REFERRAL. NOTE TO STAFF TO CHECK ON REFERRAL 10/16/2024 Chronic pain syndrome (ICD-10 - G89.4) 11/13/2024 Cervical spondylosis (ICD-10 - M47.812) CT C-SPINE COMPLETED JULY 2024. REVIEWED TODAY. WILL GET PATIENT SET UP WITH NEUROSURGERY REFERRAL. NOTE TO STAFF TO CHECK ON REFERRAL 11/13/2024 Chronic pain syndrome (ICD-10 - G89.4) 12/11/2024 MCC (current) use of opiate analgesic (ICD-10 - Z79.891) 12/11/2024 Cervical spondylosis (ICD-10 - M47.812) CT C-SPINE COMPLETED JULY 2024. REVIEWED PREVIOUSLY. WILL GET PATIENT SET UP WITH NEUROSURGERY REFERRAL. NOTE TO STAFF TO CHECK ON REFERRAL 12/11/2024 Chronic pain syndrome (ICD-10 - G89.4) 12/11/2024 Lumbar spondylosis (ICD-10 - M47.816) CT L-SPINE COMPLETED JULY 2024. REVIEWED PREVIOUSLY. WILL GET PATIENT SET UP WITH NEUROSURGERY. NOTE TO STAFF TO CHECK ON REFERRAL 11/13/2024 Lumbar spondylosis (ICD-10 - M47.816) CT L-SPINE COMPLETED JULY 2024. REVIEWED PREVIOUSLY. WILL GET PATIENT SET UP WITH NEUROSURGERY. NOTE TO STAFF TO CHECK ON REFERRAL 12/11/2024 MCC use of drug (ICD-10 - Z79.899) 10/16/2024 Lumbar spondylosis (ICD-10 - M47.816) CT L-SPINE COMPLETED JULY 2024. REVIEWED PREVIOUSLY. WILL GET PATIENT SET UP WITH NEUROSURGERY. 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 Due to the nature of telemedicine, the ability to do physical assessment was limited to what can be accomplished by patient directed telehealth visit based on instruction. Those limits are understood by the patient and myself. Impression is based on history, available information, and physical findings accomplished with telehealth visit. Verbal consent was given for telemedicine visit. 20 MINUTE VIDEO CALL 03/06/2024 History of back surgery (ICD-10 - Z98.890) 02/07/2024 Other chronic pain (ICD-10 - G89.29) 02/07/2024 Acute neck pain (ICD-10 - M54.2) 12/30/2023 Lumbago with sciatica, right side (ICD-10 - M54.41) 12/30/2023 Lumbago with sciatica, left side (ICD-10 - M54.42) 03/06/2024 Cervical spondylosis (ICD-10 - M47.812) XRAY COMPLETED JAN 2024. REVIEWED. WILL GET CT CSPINE FOR FURTHER EVALUATION. 02/07/2024 Lumbago with sciatica, right side (ICD-10 - M54.41) 04/03/2024 Lumbar spondylosis (ICD-10 - M47.816) XRAY COMPLETED JAN 2024. REVIEWED TODAY. WILL GET CT LSPINE FOR FURTHER EVALUATION. 05/01/2024 Chronic pain syndrome (ICD-10 - G89.4) UDS THIS VISIT FOR MEDICATION COMPLIANCE 05/29/2024 Lumbar spondylosis (ICD-10 - M47.816) CT L-SPINE PENDING SCHED. 06/26/2024 Lumbar spondylosis (ICD-10 - M47.816) CT L-SPINE PENDING SCHED. 07/24/2024 Chronic pain syndrome (ICD-10 - G89.4) 08/21/2024 Chronic pain syndrome (ICD-10 - G89.4) 09/18/2024 Bulging of cervical intervertebral disc (ICD-10 - M50.30) 10/16/2024 History of back surgery (ICD-10 - Z98.890) 11/13/2024 History of back surgery (ICD-10 - Z98.890) 12/11/2024 History of back surgery (ICD-10 - Z98.890) 11/13/2024 Bulging of cervical intervertebral disc (ICD-10 - M50.30) 12/11/2024 Bulging of cervical intervertebral disc (ICD-10 - M50.30) 10/16/2024 Bulging of cervical intervertebral disc (ICD-10 - M50.30) 09/18/2024 Neural foraminal stenosis of cervical spine (ICD-10 - M48.02) 08/21/2024 MCC (current) use of opiate analgesic (ICD-10 - Z79.891) 07/24/2024 MCC (current) use of opiate analgesic (ICD-10 - Z79.891) 05/01/2024 MCC (current) use of opiate analgesic (ICD-10 - Z79.891) 02/07/2024 Lumbago with sciatica, left side (ICD-10 - M54.42) 12/30/2023 History of back surgery (ICD-10 - Z98.890) 03/06/2024 Lumbar spondylosis (ICD-10 - M47.816) XRAY COMPLETED JAN 2024. REVIEWED TODAY. WILL GET CT LSPINE FOR FURTHER EVALUATION. 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) 12/30/2023 Other low back pain (ICD-10 - M54.59) 02/07/2024 MCC (current) use of opiate analgesic (ICD-10 - Z79.891) 10/16/2024 Neural foraminal stenosis of cervical spine (ICD-10 - M48.02) 09/18/2024 Neural foraminal stenosis of lumbar spine (ICD-10 - M48.061) 11/13/2024 Neural foraminal stenosis of cervical spine (ICD-10 - M48.02) 12/11/2024 Neural foraminal stenosis of cervical spine (ICD-10 - M48.02) 12/11/2024 Neural foraminal stenosis of lumbar spine (ICD-10 - M48.061) 10/16/2024 Neural foraminal stenosis of lumbar spine (ICD-10 - M48.061) 11/13/2024 Neural foraminal stenosis of lumbar spine (ICD-10 - M48.061) 02/07/2024 History of back surgery (ICD-10 - Z98.890) 12/30/2023 Cervicalgia (ICD-10 - M54.2) 09/18/2024 Chronic pain syndrome (ICD-10 - G89.4) 09/18/2024 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 Narcotic prescription signed per Dr. Gustafson. Patient denies any side effects, states regimen is helping. Discussed the jail risk (ie. Addiction, oversedation, respiratory depression, and even dealth by overdose) The patient has pathology and justification for chronic use of narcotics.Discussed the jail risk of being on opiate therapy, patient [...] the warning it is at their own risk. During the patient's visit today, we discussed their [...] risks/benefits of alternative treatments such as acupuncture, ocular care technician, massage, and biofeedback.We discussed behavioral health and [...] risk, side effects, and drug interactions for jail use of narcotics. The patient understands and is aware regarding all the risk involved. Also discussed overdose prevention plan including Narcan. 02/07/2024 Other During the patient's visit today, we discussed their chronic pain, including the onset, duration, aggravating and relieving factors, nature of the pain, and their pain scale. We attempted to identify how the pain affected the patient's daily activities, mobility, mood, sleep, and relationships. We discussed both the long and short-term goals for pain management. We discussed the current medications including the dose, effectiveness, and potential side effects. Non-opioid therapies were considered, including NSAIDs and other adjuvant medications. We discussed the importance of exercise and recommended tailored exercises for the patient. We discussed physical therapy and potential referral to a physical therapist, if appropriate. We discussed the risks/benefits of alternative treatments such as acupuncture, ocular care technician, massage, and biofeedback. We discussed behavioral health and coping strategies. If [...] patient was offered a referral to behavioral health. We discussed lifestyle modifications, including getting appropriate sleep, eating a healthy diet, and striving to control their weight. We discussed avoiding activities that exacerbate their pain. We discussed that we would reassess their pain scale and adjust their care plan as needed during future visits. 03/06/2024 Other XRAY ALSO SHOWED OSTEOPOROSIS CHANGES, RECOMMENED PATIENT TO FOLLOW-UP WITH PCP FOR FURHTER EVAUATION AND MANAGEMENT WILL GIVE PATIENT COPY OF RESULTS TO TAKE TO PCP. Notes: Will continue medications as previously prescribed. Patient reports medicaiton effective. Narcotic and controlled medicaiton prescription signed per Dr. Gustafson. 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 addiction, oversedation, respiratory depression and even by overdose). During the patient's visit today, we discussed their [...] risks/benefits of alternative treatments such as acupuncture, ocular care technician, massage, and biofeedback.We discussed behavioral health and [...] as needed during future visits.Discussed all the risks, side effects, and drug interaction for longer term use of narcotics. The patient understandins and aware regarding all the risks involved. Discussed overdose prevention paln including Narcan. Chronic Opioid management - Patient continues to deny signs or symptoms of addiction, denies constipation. Continue medications as prescribed. 04/03/2024 Other Will continue all medication as previously prescribed, as patient reports effective. Narcotic prescription signed per Dr. Gustafson. Patient denies any side effects, states regimen is helping. 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 Addiction, oversedation, respiratory depression, and even dealth by overdose) The patient has pathology and justification for chronic use of narcotics. 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 During the patient's visit today, we discussed their chronic pain, including the onset, duration, aggravating and relieving factors, nature of the pain, and their pain scale. We attempted to identify how the pain affected the patient's daily activities, mobility, mood, sleep, and relationships. We discussed both the long and short-term goals for pain management. We discussed the current medications including the dose, effectiveness, and potential side effects. Non-opioid therapies were considered, including NSAIDs and other adjuvant medications. We discussed the importance of exercise and recommended tailored exercises for the patient. We discussed physical therapy and potential referral to a physical therapist, if appropriate. We discussed the risks/benefits of alternative treatments such as acupuncture, ocular care technician, massage, and biofeedback. We discussed behavioral health and coping strategies. If [...] patient was offered a referral to behavioral health. We discussed lifestyle modifications, including getting appropriate sleep, eating a healthy diet, and striving to control their weight. We discussed avoiding activities that exacerbate their pain. We discussed that we would reassess their pain scale and adjust their care plan as needed during future visits. Discussed all the risk, side effects, and drug interactions for jail use of narcotics. The patient understands and is aware regarding all the risk involved. Also discussed overdose prevention plan including Narcan 05/01/2024 Other Will continue all medication as previously prescribed, as patient reports effective. Narcotic prescription signed per Dr. Gustafson. Patient denies any side effects, states regimen is helping. 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 Addiction, oversedation, respiratory depression, and even dealth by overdose) The patient has pathology and justification for chronic use of narcotics. Discussed the jail risk of being on opiate therapy, patient [...] the warning it is at their own risk. During the patient's visit today, we discussed their chronic pain, including the onset, duration, aggravating and relieving factors, nature of the pain, and their pain scale. We attempted to identify how the pain affected the patient's daily activities, mobility, mood, sleep, and relationships. We discussed both the long and short-term goals for pain management. We discussed the current medications including the dose, effectiveness, and potential side effects. Non-opioid therapies were considered, including NSAIDs and other adjuvant medications. We discussed the importance of exercise and recommended tailored exercises for the patient. We discussed physical therapy and potential referral to a physical therapist, if appropriate. We discussed the risks/benefits of alternative treatments such as acupuncture, ocular care technician, massage, and biofeedback. We discussed behavioral health and coping strategies. If [...] patient was offered a referral to behavioral health. We discussed lifestyle modifications, including getting appropriate sleep, eating a healthy diet, and striving to control their weight. We discussed avoiding activities that exacerbate their pain. We discussed that we would reassess their pain scale and adjust their care plan as needed during future visits. Discussed all the risk, side effects, and drug interactions for jail use of narcotics. The patient understands and is aware regarding all the risk involved. Also discussed overdose prevention plan including Narcan 05/29/2024 Other Will continue all medication as previously prescribed, as patient reports effective. Narcotic prescription signed per Dr. Gustafson. Patient denies any side effects, states regimen is helping. Discussed the jail risk (ie. Addiction, oversedation, respiratory depression, and even dealth by overdose) The patient has pathology and justification for chronic use of narcotics. Discussed the jail risk of being on opiate therapy, patient [...] the warning it is at their own risk. During the patient's visit today, we discussed their chronic pain, including the onset, duration, aggravating and relieving factors, nature of the pain, and their pain scale. We attempted to identify how the pain affected the patient's daily activities, mobility, mood, sleep, and relationships. We discussed both the long and short-term goals for pain management. We discussed the current medications including the dose, effectiveness, and potential side effects. Non-opioid therapies were considered, including NSAIDs and other adjuvant medications. We discussed the importance of exercise and recommended tailored exercises for the patient. We discussed physical therapy and potential referral to a physical therapist, if appropriate. We discussed the risks/benefits of alternative treatments such as acupuncture, ocular care technician, massage, and biofeedback. We discussed behavioral health and coping strategies. If [...] patient was offered a referral to behavioral health. We discussed lifestyle modifications, including getting appropriate sleep, eating a healthy diet, and striving to control their weight. We discussed avoiding activities that exacerbate their pain. We discussed that we would reassess their pain scale and adjust their care plan as needed during future visits. Discussed all the risk, side effects, and drug interactions for jail use of narcotics. The patient understands and [...] the patient and will be followed accordingly. 06/26/2024 Other Will continue all medication as previously prescribed, as patient reports effective. Narcotic prescription signed per Dr. Gustafson. Patient denies any side effects, states regimen is helping. 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 Addiction, oversedation, respiratory depression, and even dealth by overdose) The patient has pathology and justification for chronic use of narcotics. Discussed the jail risk of being on opiate therapy, patient [...] the warning it is at their own risk. During the patient's visit today, we discussed their chronic pain, including the onset, duration, aggravating and relieving factors, nature of the pain, and their pain scale. We attempted to identify how the pain affected the patient's daily activities, mobility, mood, sleep, and relationships. We discussed both the long and short-term goals for pain management. We discussed the current medications including the dose, effectiveness, and potential side effects. Non-opioid therapies were considered, including NSAIDs and other adjuvant medications. We discussed the importance of exercise and recommended tailored exercises for the patient. We discussed physical therapy and potential referral to a physical therapist, if appropriate. We discussed the risks/benefits of alternative treatments such as acupuncture, ocular care technician, massage, and biofeedback. We discussed behavioral health and coping strategies. If [...] patient was offered a referral to behavioral health. We discussed lifestyle modifications, including getting appropriate sleep, eating a healthy diet, and striving to control their weight. We discussed avoiding activities that exacerbate their pain. We discussed that we would reassess their pain scale and adjust their care plan as needed during future visits. Discussed all the risk, side effects, and drug interactions for jail use of narcotics. The patient understands and [...] the patient and will be followed accordingly. 07/24/2024 Other Will continue all medication as previously prescribed, as patient reports effective. Narcotic prescription signed per Dr. Gustafson. Patient denies any side effects, states regimen is helping. 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 Addiction, oversedation, respiratory depression, and even dealth by overdose) The patient has pathology and justification for chronic use of narcotics. 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 During the patient's visit today, we discussed their chronic pain, including the onset, duration, aggravating and relieving factors, nature of the pain, and their pain scale. We attempted to identify how the pain affected the patient's daily activities, mobility, mood, sleep, and relationships. We discussed both the long and short-term goals for pain management. We discussed the current medications including the dose, effectiveness, and potential side effects. Non-opioid therapies were considered, including NSAIDs and other adjuvant medications. We discussed the importance of exercise and recommended tailored exercises for the patient. We discussed physical therapy and potential referral to a physical therapist, if appropriate. We discussed the risks/benefits of alternative treatments such as acupuncture, ocular care technician, massage, and biofeedback. We discussed behavioral health and coping strategies. If [...] patient was offered a referral to behavioral health. We discussed lifestyle modifications, including getting appropriate sleep, eating a healthy diet, and striving to control their weight. We discussed avoiding activities that exacerbate their pain. We discussed that we would reassess their pain scale and adjust their care plan as needed during future visits. Discussed all the risk, side effects, and drug interactions for jail use of narcotics. The patient understands and is aware regarding all the risk involved. Also discussed overdose prevention plan including Narcan 08/21/2024 Other Will continue all medication as previously prescribed, as patient reports effective. Narcotic prescription signed per Dr. Gustafson. Patient denies any side effects, states regimen is helping. 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 Addiction, oversedation, respiratory depression, and even dealth by overdose) The patient has pathology and justification for chronic use of narcotics. 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 During the patient's visit today, we discussed their chronic pain, including the onset, duration, aggravating and relieving factors, nature of the pain, and their pain scale. We attempted to identify how the pain affected the patient's daily activities, mobility, mood, sleep, and relationships. We discussed both the long and short-term goals for pain management. We discussed the current medications including the dose, effectiveness, and potential side effects. Non-opioid therapies were considered, including NSAIDs and other adjuvant medications. We discussed the importance of exercise and recommended tailored exercises for the patient. We discussed physical therapy and potential referral to a physical therapist, if appropriate. We discussed the risks/benefits of alternative treatments such as acupuncture, ocular care technician, massage, and biofeedback. We discussed behavioral health and coping strategies. If [...] patient was offered a referral to behavioral health. We discussed lifestyle modifications, including getting appropriate sleep, eating a healthy diet, and striving to control their weight. We discussed avoiding activities that exacerbate their pain. We discussed that we would reassess their pain scale and adjust their care plan as needed during future visits. Discussed all the risk, side effects, and drug interactions for utilities service investigator use of narcotics. The patient understands and is aware regarding all the risk involved. Also discussed overdose prevention plan including Narcan 09/18/2024 Other Will continue all medication as previously prescribed, as patient reports effective. Narcotic prescription signed per Dr. Gustafson. Patient denies any side effects, states regimen is helping. 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 Addiction, oversedation, respiratory depression, and even dealth by overdose) The patient has pathology and justification for chronic use of narcotics. 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 During the patient's visit today, we discussed their chronic pain, including the onset, duration, aggravating and relieving factors, nature of the pain, and their pain scale. We attempted to identify how the pain affected the patient's daily activities, mobility, mood, sleep, and relationships. We discussed both the long and short-term goals for pain management. We discussed the current medications including the dose, effectiveness, and potential side effects. Non-opioid therapies were considered, including NSAIDs and other adjuvant medications. We discussed the importance of exercise and recommended tailored exercises for the patient. We discussed physical therapy and potential referral to a physical therapist, if appropriate. We discussed the risks/benefits of alternative treatments such as acupuncture, ocular care technician, massage, and biofeedback. We discussed behavioral health and coping strategies. If [...] patient was offered a referral to behavioral health. We discussed lifestyle modifications, including getting appropriate sleep, eating a healthy diet, and striving to control their weight. We discussed avoiding activities that exacerbate their pain. We discussed that we would reassess their pain scale and adjust their care plan as needed during future visits. Discussed all the risk, side effects, and drug interactions for utilities service investigator use of narcotics. The patient understands and [...] the patient and will be followed accordingly. 10/16/2024 Other Will continue all medication as previously prescribed, as patient reports effective. Narcotic prescription signed per Dr. Gustafson. Patient denies any side effects, states regimen is helping. 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 Addiction, oversedation, respiratory depression, and even dealth by overdose) The patient has pathology and justification for chronic use of narcotics. 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 During the patient's visit today, we discussed their chronic pain, including the onset, duration, aggravating and relieving factors, nature of the pain, and their pain scale. We attempted to identify how the pain affected the patient's daily activities, mobility, mood, sleep, and relationships. We discussed both the long and short-term goals for pain management. We discussed the current medications including the dose, effectiveness, and potential side effects. Non-opioid therapies were considered, including NSAIDs and other adjuvant medications. We discussed the importance of exercise and recommended tailored exercises for the patient. We discussed physical therapy and potential referral to a physical therapist, if appropriate. We discussed the risks/benefits of alternative treatments such as acupuncture, ocular care technician, massage, and biofeedback. We discussed behavioral health and coping strategies. If [...] patient was offered a referral to behavioral health. We discussed lifestyle modifications, including getting appropriate sleep, eating a healthy diet, and striving to control their weight. We discussed avoiding activities that exacerbate their pain. We discussed that we would reassess their pain scale and adjust their care plan as needed during future visits. Discussed all the risk, side effects, and drug interactions for utilities service investigator use of narcotics. The patient understands and [...] the patient and will be followed accordingly. 11/13/2024 Other Will continue a ll medication as previously prescribed, as patient reports effective. Narcotic prescription signed per doctor. Patient denies any side effects, states regimen is helping. Discussed the jail risk (ie. Addiction, oversedation, respiratory depression, and even dealth by overdose) The patient has pathology and justification for chronic use of narcotics.Discussed the jail risk of being on opiate therapy, patient [...] risks/benefits of alternative treatments such as acupuncture, ocular care technician, massage, and biofeedback.We discussed behavioral health and [...] risk, side effects, and drug interactions for utilities service investigator use of narcotics. The patient understands and [...] the patient and will be followed accordingly. 12/11/2024 Other Will continue a ll medication as previously prescribed, as patient reports effective. Narcotic prescription signed per doctor. Patient denies any side effects, states regimen is helping. 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 Addiction, oversedation, respiratory depression, and even dealth by overdose) The patient has pathology and justification for chronic use of narcotics.Discussed the utilities service investigator risk of being on opiate therapy, patient [...] risks/benefits of alternative treatments such as acupuncture, ocular care technician, massage, and biofeedback.We discussed behavioral health and [...] risk, side effects, and drug interactions for jail use of narcotics. The patient understands and [...] will be followed accordingly. Plan Of Treatment Pending Test Test Name Order Date *X-RAY CERVICAL SPINE 2-3 VIEW [id number] 09/2023 *X-RAY LUMBAR SPINE 2-3 VIEWS [id number] 09/2023 Urine Drug Screen 12/02/2023 Urine Drug Screen 12/30/2023 Next Appt Details Provider Name:Jo Noble, Vipul 10:00:00 AM, [address], [place], [address], Insurance Providers Payer Name Payer Address Payer Phone Subscriber Number Group Number Insured Name Patient Relationship to Insured Coverage Start Date Coverage End Date [facility] [employer] [address] [place] [address] [id number] Robby Wills Self - patient is the insured 5 5 [employer] [place] [address] [place] [address] [id number] Johann Robby Self - patient is the insured Medicare Part B [facility] [address] [place] [address] [id number] Robby Wills Self - patient is the insured Medical (General) History Medical History History ICD Code Chronic Pain
[2024-12-17 21:50] LABS: Troponin(5th) Baseline 10 ng/L (0-15)
[2024-12-17 21:52] LABS: Alanine Aminotransferase 15 U/L (0-41); Albumin Level 4.3 g/dL (3.5-5.2); Alkaline Phosphatase 94 U/L (40-130); Blood Urea Nitrogen 14 mg/dL (8-23); Calcium 9.2 mg/dL (8.5-10.5); Carbon Dioxide 22 mmol/L (22-29); Chloride 100 mmol/L (98-107); Creatinine Clr Calc Pharmacy 66.7415; Globulin 2.9 g/dL (1.3-4.6); Glucose 94 mg/dL (65-115); Lipase 45 U/L (13-60); Osmolality Calculated 280 mOsm/kg (285-295); Sodium 135 mmol/L (136-145); Total Protein 7.2 g/dL (6.6-8.7)
[2024-12-17 21:55] LABS: Anion Gap 17.0 (5-19); Aspartate Amino Transferase 21 U/L (0-40); Potassium 4.0 mmol/L (3.5-5.1)
[2024-12-17 22:25] LABS: Hematocrit 39.7 % (37-53); Hemoglobin 13.10 g/dL (11.27-16.99); Mean Corpuscular HGB Conc 33.0 g/dL (30-55); Mean Corpuscular Hemoglobin 26.7 pg (27-33); Mean Corpuscular Volume 81.0 fl (82-101); Nucleated Red Blood Cells % 0 %; Platelet Count 225 10^3/cmm (157-399); Red Blood Count 4.90 10^6/uL (3.85-5.65); White Blood Count 6.64 10^3/uL (3.29-11.43)
[2024-12-17 22:40] VITALS: BP 124/56; PULSE 52; RESP 18; O2SAT 97
== END 2024-12-17 22:41 | disposition home or self-care (01) ==
PROVIDERS: Emergency Provider Emergency Medicine; Family Provider Family Medicine; PCP Nurse Practitioner Family
DX: R07.9 Chest pain, unspecified (principal); Z79.82 Long term (current) use of aspirin
CPT/HCPCS: 36415; 71045; 80053; 83690; 84484; 85025; 93005; 99285

== ENCOUNTER 2025-01-19 09:35 | Outpatient (RCR) | payer OTHER, SELFPAY | END 2025-01-22 23:59 | disposition home or self-care (01) | LOC: WPT 09:35 | PROVIDERS: Visit Provider Nurse Practitioner Family | DX: M54.59 Other low back pain (principal); M25.511 Pain in right shoulder | CPT/HCPCS: 97161 ==

== ENCOUNTER 2025-02-17 10:47 | Outpatient (RCR) | payer OTHER, SELFPAY | END 2025-02-21 23:59 | disposition home or self-care (01) | LOC: WPT 10:47 | PROVIDERS: Visit Provider Nurse Practitioner Family | DX: M54.59 Other low back pain (principal); M25.511 Pain in right shoulder | CPT/HCPCS: 97110; 97112; 97530 ==